=== PATIENT | male | born 1930 | race Caucasian/White ===

== ENCOUNTER 2016-08-02 15:20 | Inpatient (IN) | payer OTHER, MEDICARE ==
[~2016-08-02] VITALS: Ht 162.6 cm; Wt 77.6 kg
[~2016-08-02 15:20] MED LIST: LACTATED RINGER'S 1000 ML INJ 1,000 ML IV ONE; ONDANSETRON HCL 4 MG/2 ML VIAL IV PUSH ONE; PROPOFOL 200 MG/20 ML AMP IV ONE; ePHEDrine/NS 25 MG/5 ML SYR IV ONE
[2016-08-02 15:21] VITALS: BP 154/78; PULSE 54; RESP 15; TEMP 98.3; O2SAT 98
[2016-08-02] MEDS ORDERED: TAMS0.4C4 PO (15:38)
[2016-08-02] MEDS ORDERED: LOSA25TA PO (15:38)
[2016-08-02] MEDS ORDERED: METF500T PO (15:38)
[2016-08-02] MEDS ORDERED: SIMV10TA PO (15:38)
--- NOTE | 2016-08-02 15:55 | PD ---
HPI Chief Complaint: Medical Clearance Time Seen by Provider: 15:40 Travel History International Travel<30 days: No Contact w/Intl Traveler<30days: No Traveled to known affect area: No History of Present Illness HPI 86 year old male presents to the emergency department sent by urgent care for possible DVT/cellulitis to the left upper extremity. Patient states that he started to notice erythema and swelling to the left second finger approximately 2 weeks ago. He reports injury approximately 15 years ago where he injured the tip of the finger, but denies any recent injury. He apparently went to urgent care where he was referred to the emergency department. He states the erythema streaks up his left arm and he has swelling to the left arm. He denies any fevers. Patient reports history of hypertension, hyperlipidemia, diabetes. He states pain is minimal. He has reduced range of motion of the affected digit, but does report chronic reduced range of motion due to arthritis. PFSH Past Medical History Cardiovascular Problems: Yes Diabetes: Yes Diminished Hearing: Yes Tetanus Vaccination: Unknown Influenza Vaccination: No Social History Alcohol Use: No Tobacco Use: No Substance Use: No Allergies-Medications (Allergen,Severity, Reaction): Coded Allergies: Penicillin (Verified Allergy, Severe, Rash, 08/02/16) Reported Meds & Prescriptions Reported Meds & Active Scripts Active Reported Tamsulosin (Tamsulosin HCl) 0.4 Mg Cap 0.4 Mg PO HS Simvastatin 10 Mg Tab 10 Mg PO DAILY Metformin (Metformin HCl) 500 Mg Tab 500 Mg PO BIDPC With meals Losartan (Losartan Potassium) 25 Mg Tab 25 Mg PO DAILY Review of Systems Except as stated in HPI: all other systems reviewed are Neg Physical Exam Narrative GENERAL: Well-nourished, well-developed elderly male patient, ambulatory. Afebrile. SKIN: Focused skin assessment warm/dry. Left second finger is erythematous and swollen throughout the finger. There is lymphangiitis that streaks up the left arm. Patient also has edema noted to the left upper extremity. HEAD: Normocephalic. Atraumatic. EYES: No scleral icterus. No injection or drainage. NECK: Supple, trachea midline. No JVD or lymphadenopathy. CARDIOVASCULAR: Regular rate and rhythm without murmurs, gallops, or rubs. Left radial pulse 2+. RESPIRATORY: Breath sounds equal bilaterally. No accessory muscle use. GASTROINTESTINAL: Abdomen soft, non-tender, nondistended. MUSCULOSKELETAL: No cyanosis. Patient has limited ROM of all joints of the left second finger. BACK: Nontender without obvious deformity. No CVA tenderness. Data Data Last Documented VS Vital Signs Date Time Temp Pulse Resp B/P Pulse Ox O2 Delivery O2 Flow Rate FiO2 08/02/16 15:21 98.3 54 15 154/78 98 Orders Iv Access Insert/Monitor (08/02/16 15:37) Complete Blood Count With Diff (08/02/16 15:37) Basic Metabolic Panel (Bmp) (08/02/16 15:37) Hand, Complete ([id number]) (08/02/16 ) Us Arm Venous Doppler (08/02/16 ) Blood Culture (08/02/16 15:37) C-Reactive Protein (Crp) (08/02/16 15:37) Westergren Sedimentation Rate (08/02/16 15:37) Lactic Acid Sepsis Protocol (08/02/16 15:37) Vancomycin Inj (Vancomycin Inj) (08/02/16 17:00) Admit To Inpatient (08/02/16 ) Vital Signs (Adult) Q4H (08/02/16 17:18) Activity Oob With Assistance (08/02/16 17:18) Intake + Output COLLEEN.QSHIFT (08/02/16 17:18) Sodium Chlor 0.9% 1000 Ml Inj (Ns 1000 M (08/02/16 17:18) Sodium Chloride 0.9% Flush (Ns Flush) (08/02/16 17:30) Sodium Chloride 0.9% Flush (Ns Flush) (08/02/16 21:00) Acetaminophen (Tylenol) (08/02/16 17:30) Ondansetron Inj (Zofran Inj) (08/02/16 17:30) Comprehensive Metabolic Panel (08/03/16 06:00) Complete Blood Count With Diff (08/03/16 06:00) Heparin Inj (Heparin Inj) (08/02/16 18:00) Scd Bilateral/Knee High COLLEEN.BID (08/02/16 17:18) Inpatient Certification (08/02/16 ) Piperacil-Tazo 4.5 Gm Premix (Zosyn 4.5 (08/02/16 17:30) Vancomycin Consult Pharmacy (Vancomycin (08/02/16 17:30) Levofloxacin 750 Mg Premix Inj (Levaquin (08/02/16 18:00) Admit Order (Ed Use Only) (08/02/16 17:21) Labs Laboratory Tests Test 08/02/16 08/02/16 15:35 15:45 White Blood Count 9.0 TH/MM3 Red Blood Count 4.25 MIL/MM3 Hemoglobin 12.7 GM/DL Hematocrit 38.8 % Mean Corpuscular Volume 91.3 FL Mean Corpuscular Hemoglobin 29.9 PG Mean Corpuscular Hemoglobin 32.7 % Concent Red Cell Distribution Width 13.8 % Platelet Count 229 TH/MM3 Mean Platelet Volume 7.3 FL Neutrophils (%) (Auto) 62.9 % Lymphocytes (%) (Auto) 19.8 % Monocytes (%) (Auto) 15.0 % Eosinophils (%) (Auto) 1.9 % Basophils (%) (Auto) 0.4 % Neutrophils # (Auto) 5.7 TH/MM3 Lymphocytes # (Auto) 1.8 TH/MM3 Monocytes # (Auto) 1.4 TH/MM3 Eosinophils # (Auto) 0.2 TH/MM3 Basophils # (Auto) 0.0 TH/MM3 CBC Comment DIFF FINAL Differential Comment Erythrocyte Sedimentation Rate 56 mm/hr Sodium Level 136 MEQ/L Potassium Level 4.4 MEQ/L Chloride Level 101 MEQ/L Carbon Dioxide Level 27.5 MEQ/L Anion Gap 8 MEQ/L Blood Urea Nitrogen 23 MG/DL Creatinine 1.24 MG/DL Estimat Glomerular Filtration 55 ML/MIN Rate Random Glucose 104 MG/DL Calcium Level 8.9 MG/DL C-Reactive Protein 7.04 MG/DL Lactic Acid Level 1.3 mmol/L [facility] Medical Decision Making Medical Screen Exam Complete: Yes Emergency Medical Condition: Yes Medical Record Reviewed: Yes Interpretation(s) xr left hand - CONCLUSION: 1. 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 2. Soft tissue swelling over the second digit with osteoarthritic change as well. 3. The patient's fingers are flexed. Venous doppler US of the left upper extremity - CONCLUSION: Negative exam with no evidence of thrombosis. Differential Diagnosis cellulitis vs. osteomyelitis vs. DVT vs. sepsis Narrative Course 86 year old elderly male presents to the emergency department for evaluation of left second finger swelling, erythema, left arm edema that started 2 weeks ago. Physical exam reveals swelling and erythema of the left second finger was reduced range of motion as well as red streaking up the left arm and edema of the left arm. IV access established. CBC, BMP, CRP, sedimentation rate, blood cultures 2, lactic acid are ordered and pending. X-ray left hand is ordered and pending. Venous Doppler ultrasound of the left upper extremity is ordered and pending. CBC shows normal WBC of 9.0. BMP shows no acute abnormality. Sed rate is 56. CRP is 7.04. Lactic acid is 1.3. X-ray of the left hand shows osteoarthritic change greatest involving the third metacarpal phalangeal joint; soft tissue swelling over the second digit with osteoarthritic change as well; the patient' s fingers are flexed. Venous doppler US of left arm is negative for DVT. Hand surgeon on-call and [facility] is paged for admission. Dr. Camacho accepted admission. Dr. Newton, and surgeon, would like the patient to be nothing by mouth and she will come see the patient this evening. Diagnosis Primary Impression: Cellulitis of finger of left hand Admitting Information Admitting Physician Requests: Admit Lianna Perkins Aug 02, 2016 15:55
--- NOTE | 2016-08-02 16:20 | RADRPT ---
EXAM DATE/TIME: 08/02/2016 15:52 [facility] COMPARISON: No previous studies available for comparison. INDICATIONS : Left second finger swelling for several days. MEDICAL HISTORY : None. SURGICAL HISTORY : None. ENCOUNTER: Initial ACUITY: 3 days PAIN SCORE: 4/10 LOCATION: Left distal 2nd digit. FINDINGS: AP, lateral and oblique views of the left hand were obtained. The patient's fingers are flexed limiti ng the sensitivity. There is no acute fracture or malalignment. There are degenerative changes greate st involving the third metacarpal phalangeal joint with joint space loss, sclerosis and subchondral c yst formation. There is degenerative change involving the second distal interphalangeal joint as well with flexion. There is diffuse soft tissue swelling over the second digit no radiopaque foreign body . CONCLUSION: 1. 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 2. Soft tissue swelling over the second digit with osteoarthritic change as well. 3. The patient's fingers are flexed. Zaki Ramos MD on August 02, 2016 at 16:16 Board Certified Radiologist. This report was verified electronically.
[2016-08-02 16:26] LABS: AUTOMATED NEUTROPHIL # 5.7 TH/MM3 (1.8-7.7); BASOPHIL % 0.4 % (0.0-2.0); EOSINOPHIL # 0.2 TH/MM3 (0-0.4); EOSINOPHIL % 1.9 % (0.0-4.0); HEMATOCRIT 38.8 % (39.0-51.0); HEMO FLAGS DIFF FINAL; LYMPH % 19.8 % (9.0-44.0); LYMPHOCYTE # 1.8 TH/MM3 (1.0-4.8); MEAN CELL VOLUME 91.3 FL (80.0-100.0); MEAN CORPUSCULAR HEMOGLOBIN 29.9 PG (27.0-34.0); MEAN CORPUSCULAR HGB CONC 32.7 % (32.0-36.0); NEUT % 62.9 % (16.0-70.0); PLATELET COUNT 229 TH/MM3 (150-450); RED BLOOD COUNT 4.25 MIL/MM3 (4.50-5.90); RED CELL DISTRIBUTION WIDTH 13.8 % (11.6-17.2)
[2016-08-02 16:34] LABS: BICARBONATE 27.5 MEQ/L (21.0-32.0); POTASSIUM 4.4 MEQ/L (3.5-5.1)
--- NOTE | 2016-08-02 16:51 | RADRPT ---
EXAM DATE/TIME: 08/02/2016 15:47 [facility] COMPARISON: No previous studies available for comparison. INDICATIONS : Left arm pain. MEDICAL HISTORY : Hearing loss. Cardiac disorders. Diabetes. SURGICAL HISTORY : No known previous surgical history. ENCOUNTER: Initial ACUITY: 2 day PAIN SCORE: 3/10 LOCATION: Left arm. FINDINGS: There is spontaneous flow documented in the brachial, basilic, cephalic, axillary, and subclavian vei ns. The vessels are compressible and augmentation response is documented. No filling defects are se en. The flow is phasic with respiration. Direction of flow in the jugular vein is caudal. CONCLUSION: Negative exam with no evidence of thrombosis. Zaki Ramos MD on August 02, 2016 at 16:48 Board Certified Radiologist. This report was verified electronically.
[2016-08-02] MEDS ORDERED: VANCOMYCIN INJ 1,000 MG in SODIUM CHLOR 0.9% 250 ML INJ 250 ML IV ONE (17:00)
--- NOTE | 2016-08-02 17:13 | PD ---
Data Data Last Documented VS Vital Signs Date Time Temp Pulse Resp B/P Pulse Ox O2 Delivery O2 Flow Rate FiO2 08/02/16 15:21 98.3 54 15 154/78 98 Orders Iv Access Insert/Monitor (08/02/16 15:37) Complete Blood Count With Diff (08/02/16 15:37) Basic Metabolic Panel (Bmp) (08/02/16 15:37) Hand, Complete ([id number]) (08/02/16 ) Us Arm Venous Doppler (08/02/16 ) Blood Culture (08/02/16 15:37) C-Reactive Protein (Crp) (08/02/16 15:37) Westergren Sedimentation Rate (08/02/16 15:37) Lactic Acid Sepsis Protocol (08/02/16 15:37) Vancomycin Inj (Vancomycin Inj) (08/02/16 17:00) Diet Diabetic (08/02/16 Dinner) Labs Laboratory Tests Test 08/02/16 08/02/16 15:35 15:45 White Blood Count 9.0 TH/MM3 Red Blood Count 4.25 MIL/MM3 Hemoglobin 12.7 GM/DL Hematocrit 38.8 % Mean Corpuscular Volume 91.3 FL Mean Corpuscular Hemoglobin 29.9 PG Mean Corpuscular Hemoglobin 32.7 % Concent Red Cell Distribution Width 13.8 % Platelet Count 229 TH/MM3 Mean Platelet Volume 7.3 FL Neutrophils (%) (Auto) 62.9 % Lymphocytes (%) (Auto) 19.8 % Monocytes (%) (Auto) 15.0 % Eosinophils (%) (Auto) 1.9 % Basophils (%) (Auto) 0.4 % Neutrophils # (Auto) 5.7 TH/MM3 Lymphocytes # (Auto) 1.8 TH/MM3 Monocytes # (Auto) 1.4 TH/MM3 Eosinophils # (Auto) 0.2 TH/MM3 Basophils # (Auto) 0.0 TH/MM3 CBC Comment DIFF FINAL Differential Comment Erythrocyte Sedimentation Rate 56 mm/hr Sodium Level 136 MEQ/L Potassium Level 4.4 MEQ/L Chloride Level 101 MEQ/L Carbon Dioxide Level 27.5 MEQ/L Anion Gap 8 MEQ/L Blood Urea Nitrogen 23 MG/DL Creatinine 1.24 MG/DL Estimat Glomerular Filtration 55 ML/MIN Rate Random Glucose 104 MG/DL Calcium Level 8.9 MG/DL C-Reactive Protein 7.04 MG/DL Lactic Acid Level 1.3 mmol/L [facility] Supervised Visit with JAYDEN: Yes Narrative Course The history, exam, and medical decision-making in the associated midlevel provider note were completed with my assistance. I reviewed and agree with the findings presented. I attest that I had a [id number] encounter with the patient on the same day, and personally performed and documented my assessment and findings in the medical record. *My assessment and Findings: This is an 86-year-old male who presents to the emergency department with redness and swelling of his left second finger extending up his arm with warmth in his upper arm. He has significant arthritis affecting the family member but the finger is held in a flexed position with diffuse swelling and redness on the flexor surface with lymphangitic streaking and warmth proximal to the elbow. Inflammatory markers are elevated. Patient will be admitted for IV antibiotics and hand surgery consultation for likely incision and drainage Cherelle Garcia MD Aug 02, 2016 17:13
[2016-08-02] MEDS ORDERED: DEXTROSE 50% IN WATER 50 ML VIAL(D50) IV PUSH PRN (17:30)
[2016-08-02] MEDS ORDERED: Vancomycin Consult Pharmacy 1 EA OTHER SCH (17:30)
[2016-08-02] MEDS ORDERED: GLUCAGON 1 MG/ML VIAL OTHER PRN (17:30)
[2016-08-02] MEDS ORDERED: PIPERACIL-TAZO 4.5 GM PREMIX 100 ML IV SCH (17:30)
[2016-08-02] MEDS ORDERED: ONDANSETRON HCL 4 MG/2 ML VIAL IVP PRN (17:30)
[2016-08-02] MEDS ORDERED: SODIUM CHLORIDE 0.9% FLUSH 10 ML FLUSH IV FLUSH PRN (17:30)
[2016-08-02] MEDS ORDERED: ACETAMINOPHEN 325 MG TAB PO PRN (17:30)
[2016-08-02] MEDS ORDERED: LEVOFLOXACIN 750 MG PREMIX INJ 150 ML IV SCH (18:00)
[2016-08-02] MEDS ORDERED: MORPHINE SULFATE 4 MG/ML INJ IV PUSH PRN (18:00)
[2016-08-02] MEDS ORDERED: HEPARIN SODIUM - SQ 10,000 UNITS/ML VIAL SQ SCH (18:00)
--- NOTE | 2016-08-02 18:03 | HHI.HP ---
HPI Service [facility] Primary Care Physician Brent Walker, Admission Diagnosis cellulitis of left 2nd finger/left arm Diagnoses: Travel History International Travel<30 Days: No Contact w/Intl Traveler <30 Da: No Traveled to Known Affected Are: No History of Present Illness 86-year-old male with a past medical history of HTN, HLD, DM, and BPH who presents with left index finger swelling. The patient states that for the past 2 or 3 weeks she's been having swelling of his left index finger. He denies any acute injury. He has a dull ache in the finger, denies any pain. He has some swelling and redness of his left arm now. He was seen at urgent care and referred to the ED for evaluation. He denies any fevers or chills. Hand surgeries contacted from the ED and recommended to the patient nothing by mouth for evaluation and possible I&D in the OR tonight. The patient denies any nausea, abdominal pain, diarrhea, cough. Review of Systems Except as stated in HPI: all other systems reviewed are Neg Past Family Social History Past Medical History Hypertension Hyperlipidemia Diabetes mellitus BPH Past Surgical History Left hip replacement Reported Medications Tamsulosin (Tamsulosin HCl) 0.4 Mg Cap 0.4 Mg PO HS Simvastatin 10 Mg Tab 10 Mg PO DAILY Metformin (Metformin HCl) 500 Mg Tab 500 Mg PO BIDPC With meals Losartan (Losartan Potassium) 25 Mg Tab 25 Mg PO DAILY Allergies: Coded Allergies: Penicillin (Verified Allergy, Severe, Rash, 08/02/16) Active Ordered Medications Current Medications Medications (Trade) Dose Ordered Sig/Merary Route Start Time Stop Time Status Last Admin Vancomycin HCl 1000 mg/Sodium Chloride 250 ml @ 250 mls/hr ONCE ONCE IV 08/02/16 17:00 08/02/16 17:59 08/02/16 17:14 (NS 1000 ml Inj) 1,000 ml @ 100 mls/hr Q10H IV 08/02/16 17:18 (NS Flush) 2 ml UNSCH PRN IV FLUSH 08/02/16 17:30 (NS Flush) 2 ml BID IV FLUSH 08/02/16 21:00 (Tylenol) 650 mg Q4H PRN PO 08/02/16 17:30 (Zofran Inj) 4 mg Q6H PRN IVP 08/02/16 17:30 Heparin Sodium (Porcine) 5000 units 5,000 units Q8H SQ 08/02/16 18:00 Pharmacy Profile Note 0 ml @ 0 mls/hr UNSCH OTHER 08/02/16 17:30 (Levaquin 750 Mg Premix Inj) 150 ml @ 100 mls/hr Q24H IV 08/02/16 18:00 (D50w (Vial) Inj) 25 ml UNSCH PRN IV PUSH 08/02/16 17:30 Glucagon 1 mg 1 mg UNSCH PRN OTHER 08/02/16 17:30 (Vancomycin Inj/ NS 250 ml Inj) 262.5 ml @ 250 mls/hr Q24H IV 08/03/16 16:00 Miscellaneous Information SPECIFIC LAB TO BE DRAWN:VANCO TROUGH DATE TO... ONCE ONCE .XX 08/05/16 15:45 08/05/16 15:46 Family History Mother at age 98 and father in his 80s, denies any medical problems with them. Brother had prostate cancer. Social History Denies any alcohol, tobacco, or drug use Physical Exam Vital Signs Vital Signs Date Time Temp Pulse Resp B/P Pulse Ox O2 Delivery O2 Flow Rate FiO2 08/02/16 15:21 98.3 54 15 154/78 98 Physical Exam GENERAL: Well-developed well-nourished. In no acute distress. SKIN: Warm and dry. Left index finger with severe swelling, erythema, with edema and lymphangitic streaking of the left forearm. HEENT: Normocephalic. Pupils equal and round. Mucous membranes pink and moist. CARDIOVASCULAR: Regular rate and rhythm. No murmur appreciated. RESPIRATORY: No accessory muscle use. Clear to auscultation. Breath sounds equal bilaterally. GASTROINTESTINAL: Abdomen soft, non-tender, nondistended. Bowel sounds x4. MUSCULOSKELETAL: Left upper extremity as above. No clubbing or cyanosis. No edema. NEUROLOGICAL: Awake and alert. No focal neurological deficits. Moves upper and lower extremities spontaneously. Normal speech. PSYCHIATRIC: Appropriate mood and affect; insight and judgment normal. Laboratory Laboratory Tests Test 08/02/16 08/02/16 15:35 15:45 White Blood Count 9.0 Red Blood Count 4.25 Hemoglobin 12.7 Hematocrit 38.8 Mean Corpuscular Volume 91.3 Mean Corpuscular Hemoglobin 29.9 Mean Corpuscular Hemoglobin 32.7 Concent Red Cell Distribution Width 13.8 Platelet Count 229 Mean Platelet Volume 7.3 Neutrophils (%) (Auto) 62.9 Lymphocytes (%) (Auto) 19.8 Monocytes (%) (Auto) 15.0 Eosinophils (%) (Auto) 1.9 Basophils (%) (Auto) 0.4 Neutrophils # (Auto) 5.7 Lymphocytes # (Auto) 1.8 Monocytes # (Auto) 1.4 Eosinophils # (Auto) 0.2 Basophils # (Auto) 0.0 CBC Comment DIFF FINAL Differential Comment Erythrocyte Sedimentation Rate 56 Sodium Level 136 Potassium Level 4.4 Chloride Level 101 Carbon Dioxide Level 27.5 Anion Gap 8 Blood Urea Nitrogen 23 Creatinine 1.24 Estimat Glomerular Filtration 55 Rate Random Glucose 104 Calcium Level 8.9 C-Reactive Protein 7.04 Lactic Acid Level 1.3 Date/Time Procedure Status Source Growth 08/02/16 15:50 Aerobic Blood Culture Received Blood Peripheral Pending 08/02/16 15:50 Anaerobic Blood Culture Received Blood Peripheral Pending Result Diagram: 08/02/16 1535 08/02/16 1535 Imaging Last Impressions Upper Extremity Ultrasound 08/02/16 0000 Signed Impressions: Service Date/Time: Tuesday, August 02, 2016 15:47 - CONCLUSION: Negative exam with no evidence of thrombosis. Zaki Ramos MD Hand X-Ray 08/02/16 0000 Signed Impressions: Service Date/Time: Tuesday, August 02, 2016 15:52 - CONCLUSION: 1. 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 2. Soft tissue swelling over the second digit with osteoarthritic change as well. 3. The patient's fingers are flexed. Zaki Ramos MD Assessment and Plan Assessment and Plan 86-year-old male with a past medical history of HTN, HLD, DM, and BPH who presents with left index finger swelling Left index finger cellulitis with suspected underlying abscess: Afebrile with no leukocytosis. Elevated ESR and CRP. Hand X-ray with soft tissue swelling and also for any changes. Impression renal ultrasound negative for DVT. Hand surgery consulted, keep nothing by mouth for now. IV antibiotics with vancomycin and Levaquin with penicillin allergy. Pain control with [place] and IV morphine as needed. Diabetes mellitus: Hold home metformin for now. Monitor Accu-Cheks. Cover with SSI. ALEXANDRE vs CKD: Creatinine 1.24, no previous labs for comparison. IVF. Follow-up BMP in the a.m. Other chronic medical conditions include HTN, HLD, BPH: Stable at this time and will continue home medications as indicated. DVT prophylaxis: SCDs. Hold chemical prophylaxis with possible upcoming procedure. Written by Lam Pringle, acting as scribe for Dr. Camacho on 08/02/16 at 18:03. Discussed Condition With Patient, ED CLASSIFICATION ANALYST Attending Statement This note was transcribed by scribe Lam Pringle. I, Dr. Marlon Fang personally performed the history, physical exam, and medical decision making; and confirmed the accuracy of the information in the transcribed note. Authenticated by Dr. Marlon Fang on 08/03/16 at 09:18. Lam Pringle Aug 02, 2016 18:03 Marlon Enrique MD Aug 03, 2016 09:19
[2016-08-02] MEDS: SODIUM CHLOR 0.9% 1000 ML INJ 1,000 ML IV SCH ×2 (18:07→22:30)
[2016-08-02] MEDS ORDERED: GADODIAMIDE PF 287 MG/ML 5 ML VIAL (for RAD MRI) IV ONE (20:06)
--- NOTE | 2016-08-02 20:34 | RADRPT ---
EXAM DATE/TIME: 08/02/2016 19:42 [facility] COMPARISON: No previous studies available for comparison. INDICATIONS : Osteomyelitis. Left index finger redness and swelling. CONTRAST: 15 cc Omniscan (gadodiamide) IV MEDICAL HISTORY : Diabetes mellitus type 2. SURGICAL HISTORY : Total knee replacement, left. ENCOUNTER: Subsequent ACUITY: 3 day PAIN SCORE: 0/10 LOCATION: Left hand. TECHNIQUE: Multiplanar, multisequence MRI examination was performed without contrast and after the intravenous a dministration of gadolinium. FINDINGS: There is soft tissue edema of the left pointer finger, especially distally. Dorsal-most soft tissues are ulcerated. There is a 7 mm rim-enhancing fluid collection distally as well, slightly palmar in lo cation and appears to be draining to the skin. The fluid collection extends down to the distal tip of the distal phalanx which is focally eroded. There is decreased T1 signal throughout the distal phala nx compatible with diffuse osteomyelitis. There is no evidence of osteomyelitis of the proximal or middle phalanges of the pointer finger. No o steomyelitis of the other digits. CONCLUSION: 1. Diffuse soft tissue swelling of the pointer finger. There is ulceration and a 7 mm abscess distall y. 2. There is signal abnormality compatible with osteomyelitis throughout the pointer finger distal pha lanx. There is focal cortical destruction of the distal tip of the bone. Gerardo Amaro MD on August 02, 2016 at 20:28 Board Certified Radiologist. This report was verified electronically.
[2016-08-02] MEDS ORDERED: LIDOCAINE HCL 2% 50 ML VIAL ONE (21:04)
[2016-08-02] MEDS ORDERED: ceFAZolin INJ 1,000 MG VIAL IV ONE (21:05)
[2016-08-02] MEDS ORDERED: NEOMYCIN/POLYMYXIN 1 ML G.U. IRRIGANT TOPICAL ONE (21:06)
[2016-08-02] MEDS ORDERED: fentaNYL CITRATE 250 MCG/5 ML AMP ONE (22:07)
[2016-08-02] MEDS: SODIUM CHLORIDE 0.9% FLUSH 10 ML FLUSH IV FLUSH SCH (22:30)
[2016-08-02] MEDS: INSULIN ASPART SUPPLEMENTAL SCALE SQ SCH (22:30)
[2016-08-02] MEDS: TAMSULOSIN HCL 0.4 MG CAP PO SCH (23:06)
[2016-08-02 23:09] VITALS: BP 131/71; PULSE 95; RESP 16; TEMP 96.6; O2SAT 93
--- NOTE | 2016-08-02 23:37 | PD.ORT.PN ---
Subjective Subjective Remarks 86yM L index finger swelling with lymphangitis left elbow likely osteomyelitis left index finger, PMHx significant for DM Objective Vitals Vital Signs Date Time Temp Pulse Resp B/P Pulse Ox O2 Delivery O2 Flow Rate FiO2 08/02/16 23:09 96.6 95 16 131/71 93 08/02/16 22:32 98.3 18 147/79 94 Nasal Cannula 3 08/02/16 22:15 21 132/68 98 Nasal Cannula 3 08/02/16 22:00 98.4 101 18 133/71 98 Nasal Cannula 3 08/02/16 15:21 98.3 54 15 154/78 98 I/O 08/01/16 08/01/16 08/01/16 08/02/16 08/02/16 08/02/16 07:00 15:00 23:00 07:00 15:00 23:00 Intake Total 1100 ml Output Total 110 ml Balance 990 ml Intake Oral 0 ml Other 1100 ml Output Urine Total 100 ml Estimated Blood Loss 10 ml Result Diagram: 08/02/16 1535 08/02/16 1535 Imaging Last 24 hours Impressions Upper Extremity Ultrasound 08/02/16 0000 Signed Impressions: Service Date/Time: Tuesday, August 02, 2016 15:47 - CONCLUSION: Negative exam with no evidence of thrombosis. Zaki Ramos MD Hand X-Ray 08/02/16 0000 Signed Impressions: Service Date/Time: Tuesday, August 02, 2016 15:52 - CONCLUSION: 1. 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 2. Soft tissue swelling over the second digit with osteoarthritic change as well. 3. The patient's fingers are flexed. Zaki Ramos MD Hand MRI 08/02/16 0000 Signed Impressions: Service Date/Time: Tuesday, August 02, 2016 19:42 - CONCLUSION: 1. Diffuse soft tissue swelling of the pointer finger. There is ulceration and a 7 mm abscess distally. 2. There is signal abnormality compatible with osteomyelitis throughout the pointer finger distal phalanx. There is focal cortical destruction of the distal tip of the bone. Gerardo Amaro MD Objective Remarks Dressing in place, Good capillary refill to flap, able to wiggle finger Assessment & Plan Assessment and Plan POD0 s/p I&D left index finger, revision amputation left index finger -Admit for IV Ab, infectious disease consulted -Glucose control -Dressing change POD2, will continue to follow Dianne Newton MD Aug 02, 2016 23:37
[2016-08-02 23:52] VITALS: O2SAT 93
[2016-08-03] MEDS ORDERED: VANCOMYCIN INJ 1,000 MG in SODIUM CHLOR 0.9% 250 ML INJ 250 ML IV SCH (05:00)
[2016-08-03 05:17] VITALS: BP 144/85; PULSE 110; RESP 16; TEMP 95.9; O2SAT 96
[2016-08-03] MEDS: INSULIN ASPART SUPPLEMENTAL SCALE SQ SCH ×4 (05:34→21:00)
[2016-08-03 06:59] LABS: AUTOMATED NEUTROPHIL # 6.6 TH/MM3 (1.8-7.7); BASOPHIL % 0.1 % (0.0-2.0); EOSINOPHIL % 0.1 % (0.0-4.0); HEMATOCRIT 39.4 % (39.0-51.0); LYMPH % 7.2 % (9.0-44.0); LYMPHOCYTE # 0.5 TH/MM3 (1.0-4.8); MEAN CELL VOLUME 91.5 FL (80.0-100.0); MEAN CORPUSCULAR HEMOGLOBIN 29.9 PG (27.0-34.0); MEAN CORPUSCULAR HGB CONC 32.7 % (32.0-36.0); MONO % 5.3 % (0.0-8.0); NEUT % 87.3 % (16.0-70.0); PLATELET COUNT 216 TH/MM3 (150-450); RED CELL DISTRIBUTION WIDTH 13.5 % (11.6-17.2); WHITE BLOOD COUNT 7.6 TH/MM3 (4.0-11.0)
[2016-08-03 07:05] LABS: HEMO FLAGS DIFF FINAL
[2016-08-03 07:20] LABS: ALT (GPT) 19 U/L (12-78); ANION GAP 9 MEQ/L (5-15); AST (GOT) 19 U/L (15-37); BICARBONATE 25.7 MEQ/L (21.0-32.0); BLOOD UREA NITROGEN 20 MG/DL (7-18); CHLORIDE 103 MEQ/L (98-107); GLOMERULAR FILTRATION RATE 59 ML/MIN (>89); POTASSIUM 4.4 MEQ/L (3.5-5.1); SODIUM (NA) 138 MEQ/L (136-145)
[2016-08-03 07:22] LABS: ALKALINE PHOSPHATASE 52 U/L (45-117); TOTAL BILIRUBIN ADULT 0.6 MG/DL (0.2-1.0)
[2016-08-03 07:50] VITALS: BP 129/71; PULSE 91; RESP 20; TEMP 96.6; O2SAT 95
[2016-08-03] MEDS: LOSARTAN 25 MG TAB PO SCH (08:17)
[2016-08-03] MEDS: PRAVASTATIN SOD 20 MG TAB PO SCH (08:17)
[2016-08-03] MEDS: SODIUM CHLORIDE 0.9% FLUSH 10 ML FLUSH IV FLUSH SCH ×2 (08:18→21:08)
[2016-08-03] MEDS: ACETAMINOPHEN/HYDROcodone 325 MG/5 MG TAB PO PRN (08:22)
--- NOTE | 2016-08-03 09:53 | MB ---
cc: ESTEFANI GUARDADO DATE OF CONSULTATION: 08/02/2016 REASON FOR CONSULTATION Pain and swelling left index finger, left upper extremity. HISTORY OF PRESENT ILLNESS Rocco Coreas is a pleasant 86-year-old right-hand dominant male who states he has longstanding pain with bilateral hands with significant flexion deformity of bilateral hands. He states that he had a table saw injury to his left index finger 10 years ago and since that time has had on and off pain, swelling and drainage over the finger. He states that it was never as bad as until [id number] weeks ago when he noted swelling and erythema over the finger. He presented to the emergency room today and he states that just today he noted purulent drainage from the tip of the left index finger. He is right hand dominant. He walks with a cane. he has had a left total hip arthroplasty and denies any pain over the hip. He denies any acute paresthesias, although he does report paresthesias in the hands bilaterally. He does have a history of diabetes but does not know his A1c. He denies any fevers, chills or nausea. Today he presented with swelling and erythema over the left elbow. PAST MEDICAL HISTORY Hypertension and diabetes. PAST SURGICAL HISTORY Left total hip arthroplasty. MEDICATION 1. Tamsulosin. 2. Simvastatin. 3. Metformin. 4. Losartan. ALLERGIES PENICILLIN. SOCIAL HISTORY Denies tobacco, alcohol or drug use. PHYSICAL EXAMINATION VITAL SIGNS: The patient is afebrile. Vital signs are stable. Exam of the left index finger shows purulent drainage from the tip of the left index finger. There is nail deformity. There is significant swelling of the left index finger throughout the course with erythema extending to the MP joint. The patient also has significant swelling over the elbow with lymphangitis. Minimal pain with range of motion of the elbow. Sensation present but decreased in the median, ulnar and radial distribution, 2+ radial pulse. The patient holds his fingers baseline bilaterally with flexion deformity of the PIP joints. LABORATORY DATA White count 9, ESR 56, CRP 7.04, glucose 104. IMAGING STUDIES X-rays of the left hand were reviewed which showed diffuse arthritis throughout the finger, worse at the third MCP joint with soft tissue swelling over the index finger. ASSESSMENT/PLAN 86-year-old right hand dominant male with several week history at least of pain, swelling and erythema over the index finger. This time he likely has osteomyelitis. At this time I recommend a stat MRI before likely surgical intervention including incision and drainage of the abscess, possible revision amputation and the patient elected to proceed. Risks were explained to include but not limited to sepsis, wound complications, infection, need for additional surgeries, need for additional amputation of the finger, nail deformity, and the patient elected to proceed. After the initial discussion with the patient, MRI was ordered of the left hand which showed osteomyelitis of the left index finger distal phalanx. This has an associated abscess. No evidence of osteomyelitis of the middle or proximal phalanx. Again, this was reviewed with the patient and again he elected to proceed with possible revision amputation to the DIP joint. MD TROY Abdullahi/TLL /11:44 PM /9:29 AM CARMINE
[2016-08-03 11:46] VITALS: O2SAT 94
[2016-08-03 11:50] VITALS: BP 120/68; PULSE 90; RESP 20; TEMP 97.1; O2SAT 95
--- NOTE | 2016-08-03 13:31 | HHI.PR ---
Subjective Remarks Patient denies cp/sob states wants to go home denies fevers/chills denies nausea/vomiting Objective Vitals Vital Signs Date Time Temp Pulse Resp B/P Pulse Ox O2 Delivery O2 Flow Rate FiO2 08/03/16 11:46 94 21 08/03/16 07:50 96.6 91 20 129/71 95 08/03/16 07:50 96.6 91 20 129/71 95 08/03/16 05:17 95.9 110 16 144/85 96 08/02/16 23:52 93 21 08/02/16 23:09 96.6 95 16 131/71 93 08/02/16 22:32 98.3 18 147/79 94 Nasal Cannula 3 08/02/16 22:15 21 132/68 98 Nasal Cannula 3 08/02/16 22:00 98.4 101 18 133/71 98 Nasal Cannula 3 08/02/16 15:21 98.3 54 15 154/78 98 I/O 08/02/16 08/02/16 08/02/16 08/03/16 08/03/16 08/03/16 07:00 15:00 23:00 07:00 15:00 23:00 Intake Total 1100 ml 200 ml Output Total 110 ml 800 ml Balance 990 ml -600 ml Intake Oral 0 ml 200 ml Other 1100 ml Output Urine Total 100 ml 800 ml Estimated Blood Loss 10 ml # Bowel Movements 6 Result Diagram: 08/03/16 0545 08/03/16 0545 Imaging Last Impressions Upper Extremity Ultrasound 08/02/16 0000 Signed Impressions: Service Date/Time: Tuesday, August 02, 2016 15:47 - CONCLUSION: Negative exam with no evidence of thrombosis. Zaki Ramos MD Hand X-Ray 08/02/16 0000 Signed Impressions: Service Date/Time: Tuesday, August 02, 2016 15:52 - CONCLUSION: 1. 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 2. Soft tissue swelling over the second digit with osteoarthritic change as well. 3. The patient's fingers are flexed. Zaki Ramos MD Hand MRI 08/02/16 0000 Signed Impressions: Service Date/Time: Tuesday, August 02, 2016 19:42 - CONCLUSION: 1. Diffuse soft tissue swelling of the pointer finger. There is ulceration and a 7 mm abscess distally. 2. There is signal abnormality compatible with osteomyelitis throughout the pointer finger distal phalanx. There is focal cortical destruction of the distal tip of the bone. Gerardo Amaro MD Objective Remarks GENERAL: Well-developed well-nourished. In no acute distress. SKIN: Warm and dry. HEENT: Normocephalic. Pupils equal and round. Mucous membranes pink and moist. CARDIOVASCULAR: Regular rate and rhythm. No murmur appreciated. RESPIRATORY: No accessory muscle use. Clear to auscultation. Breath sounds equal bilaterally. GASTROINTESTINAL: Abdomen soft, non-tender, nondistended. Bowel sounds x4. MUSCULOSKELETAL: No clubbing or cyanosis. No edema. Left upper extremity is dressed with dressing C/D/I. Distal phalanx is absent. NEUROLOGICAL: Awake and alert. No focal neurological deficits. Moves upper and lower extremities spontaneously. Normal speech. PSYCHIATRIC: Appropriate mood and affect; insight and judgment normal. Procedures Status post incision and drainage of left index finger with revision amputation of left index finger DIP on 08/03/16. Medications and IVs Current Medications Medications (Trade) Dose Ordered Sig/Merary Route Start Time Stop Time Status Last Admin (NS 1000 ml Inj) 1,000 ml @ 100 mls/hr Q10H IV 08/02/16 17:18 08/02/16 22:30 (NS Flush) 2 ml UNSCH PRN IV FLUSH 08/02/16 17:30 (NS Flush) 2 ml BID IV FLUSH 08/02/16 21:00 08/02/16 22:30 (Tylenol) 650 mg Q4H PRN PO 08/02/16 17:30 Ondansetron HCl 4 mg 4 mg Q6H PRN IVP 08/02/16 17:30 (Vancomycin Consult Pharmacy) 0 ml @ 0 mls/hr UNSCH OTHER 08/02/16 17:30 (D50w (Vial) Inj) 25 ml UNSCH PRN IV PUSH 08/02/16 17:30 Glucagon 1 mg 1 mg UNSCH PRN OTHER 08/02/16 17:30 (Vancomycin Inj/ NS 250 ml Inj) 262.5 ml @ 250 mls/hr Q24H IV 08/03/16 16:00 Miscellaneous Information SPECIFIC LAB TO BE DRAWN:VANCO TROUGH DATE TO... ONCE ONCE .XX 08/05/16 15:45 08/05/16 15:46 ([facility] 5-325 Mg) 1 tab Q6H PRN PO 08/02/16 18:00 08/03/16 08:22 (Morphine Inj) 2 mg Q3H PRN IV PUSH 08/02/16 18:00 (Cozaar) 25 mg DAILY PO 08/03/16 09:00 08/03/16 08:17 (Flomax) 0.4 mg HS PO 08/02/16 21:00 08/02/16 23:06 (Pravachol) 20 mg DAILY PO 08/03/16 09:00 08/03/16 08:17 Urinary Catheter: No Vascular Central Line Catheter: No A/P Problem List: (1) Osteomyelitis of finger of left hand ICD Code: M86.9 Status: Acute Plan: Hand x-ray with soft tissue swelling. Doppler ultrasound negative for DVT. Hand surgery consulted, appreciate recommendations. MRI stat was ordered by hand surgery, it showed osteomyelitis of the distal phalanx of the left index finger. Given the above findings, amputation of the left index finger was proposed to the patient which accepted. Patient was initially admitted to the medical floor on IV antibiotics - IV vancomycin and IV Levaquin. Patient is status post incision and drainage off abscess of the left index finger and revision with amputation of the distal phalanx. Continue pain control with [facility] and morphine sulfate. (2) Cellulitis of left index finger ICD Code: L03.012 Status: Acute Plan: Continue IV antibiotics. Patient on IV vancomycin IV Levaquin. (3) Abscess of left index finger ICD Code: L02.512 Status: Acute Plan: Status post incision and drainage of the left index finger abscess. Follow-up wound cultures. Wound Gram stain grew gram-positive declan. ID to follow. (4) Diabetes ICD Code: E11.9 Status: Chronic Plan: Metformin helped on admission. Continue SSI with insulin NovoLog and continue to monitor Accu-Cheks. Blood sugar seems to be stable. Hemoglobin A1c pending. (5) ALEXANDRE (acute kidney injury) ICD Code: N17.9 Status: Acute Plan: Creatinine elevated 1.24, however no previous labs for comparison. The patient placed on IV fluids. Creatinine trending down to 1.1. Continue to monitor BUN/creatinine, strict I' s and O's. Possible postobstructive AKA given urinary retention which was addressed today. (6) HTN (hypertension) ICD Code: I10 Status: Chronic Plan: BP seems to be stable. Continue losartan. (7) HLD (hyperlipidemia) ICD Code: E78.5 Status: Chronic Plan: Continue statin (8) Urinary retention ICD Code: R33.9 Status: Acute Plan: This a.m. patient with lower abdominal pain. Moya catheter inserted. We'll keep for today and start voiding trials in a.m. Will give an extra dose of Flomax 0.4 mg. (9) BPH (benign prostatic hyperplasia) ICD Code: N40.0 Status: Chronic Plan: Continue Flomax. Assessment and Plan GI prophylaxis: Add PPI. DVT prophylaxis: SCDs, will place on heparin subcutaneous . Discharge Planning Continue to monitor in the medical floor. Discharge pending and surgery clearance. Problem Qualifiers (1) Diabetes: Qualified Code: E11.8 - Type 2 diabetes mellitus with complication, without long-term current use of insulin (2) HTN (hypertension): Qualified Code: I10 - Essential hypertension Marlon Enrique MD Aug 03, 2016 13:31
--- NOTE | 2016-08-03 15:19 | MB ---
cc: JUAN DUNCAN MD,DIANNE Hartman MD DATE OF CONSULTATION: 08/03/2016 REQUESTING PHYSICIAN: Dianne Newton. REASON FOR CONSULTATION: Left index finger infection with significant lymphangitis at the left elbow. HISTORY OF PRESENT ILLNESS: This is a 86-year-old white male who presented to emergency department with severe pain in his left index finger and swelling of the left index finger. The patient noted redness extending up from his index finger up to his elbow. He states that the problem began approximately three days ago when he thinks may have something got into his left index finger at an area where he has a chronic wound beneath the nail bed. He notes that approximately 24 hours prior to admission the pain became very severe and the swelling and redness went up his left arm and therefore he presented to emergency department for evaluation. The patient had a previous injury to the left index finger approximately 15 years ago when he injured the tip of the finger with a saw, and he had occasional drainage off and on coming from that location. An ultrasound of the left upper extremity showed no evidence of deep venous thrombosis. Plain x-ray showed osteoarthritic change involving the third metacarpal phalangeal joint and soft tissue swelling over the second digit. An MRI was performed and showed diffuse soft tissue swelling of the of the pointer finger and 7 mm abscess distally and signal abnormality compatible with osteomyelitis throughout the pointer finger distal phalanx and focal cortical destruction of the distal tip of the bone. The patient denies chills or fever or other symptoms. PAST MEDICAL HISTORY 1. Left hip replacement 2. Osteoarthritis 3. Benign prostatic hypertrophy. 4. Diabetes mellitus 5. Hypertension. ALLERGIES PENICILLIN MEDICATIONS 1. Vancomycin. 2. Levaquin. 3. Colazal. 4. Pravachol. 5. Flomax. 6. [place] 5 p.r.n. SOCIAL HISTORY The patient is . No tobacco use. No alcohol use. No illicit drugs. FAMILY HISTORY Noncontributory. REVIEW OF SYSTEMS GENERAL: Denies fever or chills. HEAD, EYES, EARS, NOSE, AND THROAT: No visual blurring or diplopia. The patient has impaired hearing and uses hearing aids. No nasal discharge. No difficulty swallowing or soreness of breath. NECK: No neck pain or swelling. CARDIOVASCULAR SYSTEM: No palpitation or chest pain. RESPIRATORY: No cough or shortness of breath. GASTROINTESTINAL: Denies nausea, vomiting, abdominal pain or diarrhea. GENITOURINARY: The patient has urinary hesitancy. No burning on urination or urinary frequency. ENDOCRINE: No polyuria, polydipsia. MUSCULOSKELETAL: Significant for pain and left index finger and left forearm. Chronic wound at the tip of the left index finger with occasional draining. INTEGUMENTARY: No skin rash. No itching. HEMATOLOGIC: No easy bruising or bleeding. NEUROLOGIC: No problems coordination or dizziness. PSYCHIATRIC: No problems with depression or mood changes in the PHYSICAL EXAMINATION IN GENERAL: This is a well-developed male who is in no acute distress. The patient is awake and alert and oriented. VITAL SIGNS: Vital signs: Temperature 96.6, BP 129/71, respirations 20, Heart rate 91. HEAD, EYES, EARS, NOSE, AND THROAT: Head atraumatic. Extraocular movements grossly intact, pupils reactive to light without icterus. Oropharynx no visible lesions or thrush. Moist mucosa. NECK: The neck is supple without adenopathy or swelling. LUNGS: The lungs are clear to auscultation. HEART: The heart is regular S1-S2 without murmurs, rubs or gallops. ABDOMEN: Bowel sounds present, soft, no tenderness appreciated. RECTUM: Rectal was not preformed. EXTREMITIES: The left index finger has a surgical dressing in place. There is no redness at the forearm. The left index finger is swollen. There are no streaks of redness visible at the forearm. The remaining extremities have no clubbing, cyanosis or edema. SKIN: No rash. NEUROLOGIC: No gross focal findings. PSYCHIATRIC: The patient is calm and pleasant and cooperative. LABORATORY DATA WBC 7.6, platelets 216, hemoglobin 12.9, ESR 56. BUN 20, creatinine 1.17, sodium 138. Liver function tests normal. IMPRESSION 1. Osteomyelitis of the left index finger and also abscess. The patient is post incision and drainage and partial amputation and also removal of the nail of the left index finger. 2. Cellulitis of the left forearm. 3. Lymphangitis 4. Allergy to penicillin. RECOMMENDATIONS 1. Continue vancomycin. 2. Discontinue Levaquin since the gram stain from the surgical specimen shows moderate gram-positive cocci in pairs. 3. Monitor wound culture to determine antibiotic for continuation of treatment for this infection. Thank you for this consultation. Further recommendations will be given upon followup of the cultures. MD Aileen Davey /11:24 AM /2:54 PM
[2016-08-03 15:50] VITALS: BP 135/71; PULSE 85; RESP 20; TEMP 97.3; O2SAT 95
[2016-08-03] MEDS ORDERED: VANCOMYCIN INJ 1,250 MG in SODIUM CHLOR 0.9% 250 ML INJ 250 ML IV SCH (16:00)
[2016-08-03 16:18] LABS: HEMOGLOBIN A1a 0.8 %; HEMOGLOBIN Ao 83.6 %; HEMOGLOBIN LA1C 2.8 %; HEMOGLOBIN P3 5.7 %
[2016-08-03 20:00] VITALS: BP 125/68; PULSE 86; RESP 19; TEMP 97.6; O2SAT 95
[2016-08-03] MEDS: TAMSULOSIN HCL 0.4 MG CAP PO SCH (21:08)
[2016-08-03] MEDS: SODIUM CHLOR 0.9% 1000 ML INJ 1,000 ML IV SCH (23:18)
[2016-08-04] VITALS: BP 125/68; PULSE 84; PULSE 86; RESP 18; TEMP 97.3; TEMP 97.6; O2SAT 95; O2SAT 96
[2016-08-04 04:00] VITALS: BP 132/68; PULSE 88; RESP 19; TEMP 97.4; O2SAT 96
[2016-08-04] MEDS: INSULIN ASPART SUPPLEMENTAL SCALE SQ SCH ×4 (07:00→20:05)
[2016-08-04 08:00] VITALS: BP 129/80; PULSE 113; RESP 18; TEMP 97.2; O2SAT 95
[2016-08-04] MEDS: PRAVASTATIN SOD 20 MG TAB PO SCH (09:55)
[2016-08-04] MEDS: LOSARTAN 25 MG TAB PO SCH (09:55)
[2016-08-04] MEDS: SODIUM CHLORIDE 0.9% FLUSH 10 ML FLUSH IV FLUSH SCH ×2 (09:56→20:03)
[2016-08-04] MEDS: SODIUM CHLOR 0.9% 1000 ML INJ 1,000 ML IV SCH (10:03)
[2016-08-04] MEDS: ACETAMINOPHEN/HYDROcodone 325 MG/5 MG TAB PO PRN (11:14)
[2016-08-04 12:00] VITALS: BP 109/65; PULSE 83; RESP 18; TEMP 97.2; O2SAT 95
--- NOTE | 2016-08-04 12:16 | HHI.IDPN ---
Note Infectious Disease Note Patient says he feels okay. Notes pain in his right leg. No pain at the left index finger wound. Had to have a veliz placement yesterday. 800cc residual. Patient presented to emergency department with severe pain in his left index finger and swelling of the left index finger. The patient noted redness extending up from his index finger up to his elbow. PAST MEDICAL HISTORY 1. Left hip replacement 2. Osteoarthritis 3. Benign prostatic hypertrophy. 4. Diabetes mellitus 5. Hypertension. ALLERGIES PENICILLIN MEDICATIONS 1. Vancomycin. 2. Levaquin. SOCIAL HISTORY The patient is . No tobacco use. No alcohol use. No illicit drugs. FAMILY HISTORY Noncontributory. REVIEW OF SYSTEMS GENERAL: Denies fever or chills. HEAD, EYES, EARS, NOSE, AND THROAT: No visual blurring or diplopia. The patient has impaired hearing and uses hearing aids. No nasal discharge. No difficulty swallowing or soreness of breath. NECK: No neck pain or swelling. CARDIOVASCULAR SYSTEM: No palpitation or chest pain. RESPIRATORY: No cough or shortness of breath. GASTROINTESTINAL: Denies nausea, vomiting, abdominal pain or diarrhea. GENITOURINARY: The patient has urinary hesitancy. No burning on urination or urinary frequency. ENDOCRINE: No polyuria, polydipsia. MUSCULOSKELETAL: Significant for pain and left index finger and left forearm. Chronic wound at the tip of the left index finger with occasional draining. INTEGUMENTARY: No skin rash. No itching. HEMATOLOGIC: No easy bruising or bleeding. NEUROLOGIC: No problems coordination or dizziness. PSYCHIATRIC: No problems with depression or mood changes. OBJECTIVE: Vital Signs Date Time Temp Pulse Resp B/P Pulse Ox O2 Delivery O2 Flow Rate FiO2 08/04/16 08:00 97.2 113 18 129/80 95 08/04/16 04:00 97.4 88 19 132/68 96 08/04/16 00:00 97.3 84 18 125/68 96 08/03/16 20:00 97.6 86 19 125/68 95 08/03/16 15:50 97.3 85 20 135/71 95 08/03/16 08/03/16 08/04/16 15:00 23:00 07:00 Intake Total 1492 ml 1157 ml 568 ml Output Total 1800 ml 1000 ml Balance -308 ml 157 ml 568 ml Intake Oral 480 ml 240 ml IV Total 1012 ml 917 ml 568 ml Output Urine Total 1800 ml 1000 ml # Bowel Movements 1 Laboratory Tests Test 08/02/16 08/03/16 15:35 05:45 White Blood Count 9.0 TH/MM3 7.6 TH/MM3 Red Blood Count 4.25 MIL/MM3 4.30 MIL/MM3 Hemoglobin 12.7 GM/DL 12.9 GM/DL Hematocrit 38.8 % 39.4 % Mean Corpuscular Volume 91.3 FL 91.5 FL Mean Corpuscular Hemoglobin 29.9 PG 29.9 PG Mean Corpuscular Hemoglobin 32.7 % 32.7 % Concent Red Cell Distribution Width 13.8 % 13.5 % Platelet Count 229 TH/MM3 216 TH/MM3 Mean Platelet Volume 7.3 FL 7.4 FL Neutrophils (%) (Auto) 62.9 % 87.3 % Lymphocytes (%) (Auto) 19.8 % 7.2 % Monocytes (%) (Auto) 15.0 % 5.3 % Eosinophils (%) (Auto) 1.9 % 0.1 % Basophils (%) (Auto) 0.4 % 0.1 % Neutrophils # (Auto) 5.7 TH/MM3 6.6 TH/MM3 Lymphocytes # (Auto) 1.8 TH/MM3 0.5 TH/MM3 Monocytes # (Auto) 1.4 TH/MM3 0.4 TH/MM3 Eosinophils # (Auto) 0.2 TH/MM3 0.0 TH/MM3 Basophils # (Auto) 0.0 TH/MM3 0.0 TH/MM3 CBC Comment DIFF FINAL DIFF FINAL Differential Comment Erythrocyte Sedimentation Rate 56 mm/hr Laboratory Tests Test 08/02/16 08/02/16 08/03/16 15:35 15:45 05:45 Sodium Level 136 MEQ/L 138 MEQ/L Potassium Level 4.4 MEQ/L 4.4 MEQ/L Chloride Level 101 MEQ/L 103 MEQ/L Carbon Dioxide Level 27.5 MEQ/L 25.7 MEQ/L Anion Gap 8 MEQ/L 9 MEQ/L Blood Urea Nitrogen 23 MG/DL 20 MG/DL Creatinine 1.24 MG/DL 1.17 MG/DL Estimat Glomerular Filtration 55 ML/MIN 59 ML/MIN Rate Random Glucose 104 MG/DL 184 MG/DL Calcium Level 8.9 MG/DL 8.9 MG/DL C-Reactive Protein 7.04 MG/DL Lactic Acid Level 1.3 mmol/L Hemoglobin A1c 5.8 % Total Bilirubin 0.6 MG/DL Aspartate Amino Transf 19 U/L (AST/SGOT) Alanine Aminotransferase 19 U/L (ALT/SGPT) Alkaline Phosphatase 52 U/L Total Protein 7.4 GM/DL Albumin 3.0 GM/DL Microbiology Date/Time Procedure Status Source Growth 08/02/16 15:35 Aerobic Blood Culture - Preliminary Resulted Blood Peripheral NO GROWTH IN 2 DAYS 08/02/16 15:35 Anaerobic Blood Culture - Preliminary Resulted Blood Peripheral NO GROWTH IN 2 DAYS 08/02/16 15:50 Aerobic Blood Culture - Preliminary Resulted Blood Peripheral NO GROWTH IN 2 DAYS 08/02/16 15:50 Anaerobic Blood Culture - Preliminary Resulted Blood Peripheral NO GROWTH IN 2 DAYS 08/02/16 21:10 Gram Stain - Final Resulted Wound Finger 08/02/16 21:10 Wound Culture - Preliminary Resulted Staphylococcus Aureus 08/02/16 21:10 Acid Fast Stain Worksheet Wound Finger Pending 08/02/16 21:10 Mycobacterial Culture Worksheet Wound Finger Pending 08/02/16 21:10 Fungal Smear - Final Resulted Wound Finger NO FUNGAL ELEMENTS SEEN. 08/02/16 21:10 Fungal Culture Resulted Wound Finger Pending 08/02/16 21:10 Gram Stain - Final Resulted Wound Finger 08/02/16 21:10 Wound Culture - Preliminary Resulted Staphylococcus Aureus 08/02/16 21:10 Acid Fast Stain Received Wound Finger Pending 08/02/16 21:10 Mycobacterial Culture Received Wound Finger Pending 08/02/16 21:10 Fungal Smear - Final Resulted Wound Finger NO FUNGAL ELEMENTS SEEN. 08/02/16 21:10 Fungal Culture Resulted Wound Finger Pending PHYSICAL EXAMINATION GENERAL: no acute distress. The patient is awake and alert and oriented. HEAD, EYES, EARS, NOSE, AND THROAT: Head atraumatic. Extraocular movements grossly intact, pupils reactive to light without icterus. Oropharynx no visible lesions or thrush. Moist mucosa. NECK: The neck is supple without adenopathy or swelling. LUNGS: The lungs are clear to auscultation. HEART: The heart is regular S1-S2 without murmurs, rubs or gallops. ABDOMEN: Bowel sounds present, soft, no tenderness appreciated. EXTREMITIES: The left index finger has a surgical dressing in place. There is no redness at the forearm. The left index finger is swollen. There are no streaks of redness visible at the forearm. (+) swelling of the r. leg below the knee. No clubbing or cyanosis. SKIN: No rash. NEUROLOGIC: No gross focal findings. PSYCHIATRIC: The patient is calm and pleasant and cooperative. IMPRESSION 1. Osteomyelitis of the left index finger and also abscess. MSSA. The patient is post incision and drainage and partial amputation and also removal of the nail of the left index finger. 2. Cellulitis of the left forearm, improved. 3. Lymphangitis resolved. 4. Allergy to penicillin. RECOMMENDATIONS 1. Stop vancomycin. 2. Start Ceftriaxone. 3. IV Ceftriaxone x 2 weeks until 08/18/16. Infusion form filled. D/W Dr Camacho. Quentin Jarrett MD Aug 04, 2016 12:16 Quentin Jarrett MD Aug 04, 2016 12:16
[2016-08-04] MEDS ORDERED: TAMSULOSIN HCL 0.4 MG CAP PO ONE (13:00)
--- NOTE | 2016-08-04 13:42 | HHI.FF ---
Infusion Therapy Location of Infusion Therapy: [facility] Infusion Therapy Order Patient Information Patient Weight 77.2 kg Diagnosis: Coded Allergies: Penicillin (Verified Allergy, Severe, Rash, 08/02/16) Administer Medication Ceftriaxone 2 grams IV q 24 hours Stop Treatment: August 18, 2016 Additional Information Venous access: PICC Line Additional Instructions [x] Peripheral flush and dressing changes per protocol [x] Implanted port and central line assigner: * Implanted port: 10 ml Normal Saline followed by 5 ml Heparin 100 units/ml Heparin flush after each use and monthly to maintain. [] May leave port accessed during therapy. [] May leave peripheral site accessed for duration of therapy. [x] If patient has SOB or respiratory distress, check oxygen saturation. If less than 90% or clinical signs of respiratory distress, administer oxygen at 2 L/min. via nasal cannula and notify physician. [x] Anaphylaxis/Reaction orders: * Stop infusion. * Keep IV line open with saline flush. * Notify physician. * Monitor vital signs every 15 minutes until symptoms resolve. * Check Oxygen saturation; Oxygen at 2 L/min. via nasal cannula if less than 90% or clinical signs of respiratory distress. * Administer diphenhydramine (Benadryl) 25 mg IV STAT, (unless patient has received as pre-med). May repeat once, if necessary. * Solu-Cortef 250 mg IVP over 30-60 seconds, use 100 mg vials for each dissolution. * Epinephrine (1mg/1 ml) 0.3 mg subcutaneously or IVP now with any signs of respiratory distress. * Check with physician for new additional pre-med orders if patient is re- challenged or re-treated. [x] May remove PICC line when treatment complete, after confirming with Physician. [x] If the patient is admitted to the hospital, the ED, or transferred via [facility] , complete transfer form including medication reconciliation order sheet. Laboratory Tests Weekly Labs: Quentin Major MD Aug 04, 2016 13:42
[2016-08-04] MEDS: cefTRIAXone INJ 2,000 MG in SODIUM CHLORIDE 0.9% INJ 100 ML IV SCH (13:45)
--- NOTE | 2016-08-04 13:55 | HHI.PR ---
Subjective Remarks Patient c/o pain and swelling of right lower extremity denies cp/sob denies fevers or chills Objective Vitals Vital Signs Date Time Temp Pulse Resp B/P Pulse Ox O2 Delivery O2 Flow Rate FiO2 08/04/16 12:00 97.2 83 18 109/65 95 08/04/16 08:00 97.2 113 18 129/80 95 08/04/16 04:00 97.4 88 19 132/68 96 08/04/16 00:00 97.3 84 18 125/68 96 08/03/16 20:00 97.6 86 19 125/68 95 08/03/16 15:50 97.3 85 20 135/71 95 I/O 08/03/16 08/03/16 08/03/16 08/04/16 08/04/16 08/04/16 07:00 15:00 23:00 07:00 15:00 23:00 Intake Total 200 ml 1492 ml 1157 ml 568 ml Output Total 800 ml 1800 ml 1000 ml Balance -600 ml -308 ml 157 ml 568 ml Intake Oral 200 ml 480 ml 240 ml IV Total 1012 ml 917 ml 568 ml Output Urine Total 800 ml 1800 ml 1000 ml # Bowel Movements 6 1 Result Diagram: 08/03/16 0545 08/03/16 0545 Imaging Last Impressions Upper Extremity Ultrasound 08/02/16 0000 Signed Impressions: Service Date/Time: Tuesday, August 02, 2016 15:47 - CONCLUSION: Negative exam with no evidence of thrombosis. Zaki Ramos MD Hand X-Ray 08/02/16 0000 Signed Impressions: Service Date/Time: Tuesday, August 02, 2016 15:52 - CONCLUSION: 1. 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 2. Soft tissue swelling over the second digit with osteoarthritic change as well. 3. The patient's fingers are flexed. Zaki Ramos MD Hand MRI 08/02/16 0000 Signed Impressions: Service Date/Time: Tuesday, August 02, 2016 19:42 - CONCLUSION: 1. Diffuse soft tissue swelling of the pointer finger. There is ulceration and a 7 mm abscess distally. 2. There is signal abnormality compatible with osteomyelitis throughout the pointer finger distal phalanx. There is focal cortical destruction of the distal tip of the bone. Gerardo Amaro MD Objective Remarks GENERAL: Well-developed well-nourished. In no acute distress. SKIN: Warm and dry. HEENT: Normocephalic. Pupils equal and round. Mucous membranes pink and moist. CARDIOVASCULAR: Regular rate and rhythm. No murmur appreciated. RESPIRATORY: No accessory muscle use. Clear to auscultation. Breath sounds equal bilaterally. GASTROINTESTINAL: Abdomen soft, non-tender, nondistended. Bowel sounds x4. MUSCULOSKELETAL: No clubbing or cyanosis. No edema. Left upper extremity is dressed with dressing C/D/I. Distal phalanx is absent. Right lower extremity is swollen and mildly tender to palpation. NEUROLOGICAL: Awake and alert. No focal neurological deficits. Moves upper and lower extremities spontaneously. Normal speech. PSYCHIATRIC: Appropriate mood and affect; insight and judgment normal. Procedures Status post incision and drainage of left index finger with revision amputation of left index finger DIP on 08/03/16. Medications and IVs Current Medications Medications (Trade) Dose Ordered Sig/Merary Route Start Time Stop Time Status Last Admin (NS 1000 ml Inj) 1,000 ml @ 100 mls/hr Q10H IV 08/02/16 17:18 08/04/16 10:03 (NS Flush) 2 ml UNSCH PRN IV FLUSH 08/02/16 17:30 (NS Flush) 2 ml BID IV FLUSH 08/02/16 21:00 08/03/16 21:08 (Tylenol) 650 mg Q4H PRN PO 08/02/16 17:30 (Zofran Inj) 4 mg Q6H PRN IVP 08/02/16 17:30 (D50w (Vial) Inj) 25 ml UNSCH PRN IV PUSH 08/02/16 17:30 (Glucagon Inj) 1 mg UNSCH PRN OTHER 08/02/16 17:30 ([place] 5-325 Mg) 1 tab Q6H PRN PO 08/02/16 18:00 08/04/16 11:14 (Morphine Inj) 2 mg Q3H PRN IV PUSH 08/02/16 18:00 (Cozaar) 25 mg DAILY PO 08/03/16 09:00 08/04/16 09:55 (Flomax) 0.4 mg HS PO 08/02/16 21:00 08/03/16 21:08 Pravastatin Sodium 20 mg 20 mg DAILY PO 08/03/16 09:00 08/04/16 09:55 (Rocephin Inj/NS Inj) 100 ml @ 200 mls/hr Q24H IV 08/04/16 13:00 Urinary Catheter: No Vascular Central Line Catheter: No A/P Problem List: (1) Osteomyelitis of finger of left hand ICD Code: M86.9 Status: Acute Plan: Hand x-ray with soft tissue swelling. Doppler ultrasound negative for DVT. Hand surgery consulted, appreciate recommendations. MRI stat was ordered by hand surgery, it showed osteomyelitis of the distal phalanx of the left index finger. Given the above findings, amputation of the left index finger was proposed to the patient which accepted. Patient was initially admitted to the medical floor on IV antibiotics - IV vancomycin and IV Levaquin. Patient is status post incision and drainage off abscess of the left index finger and revision with amputation of the distal phalanx. Continue pain control with [place] and morphine sulfate. 08/04 IV Levaquin discontinued by infectious disease. Continue IV vancomycin. Wound cultures growing staph aureus. Continue antibiotic management is per ID recommendations. Further postsurgical management as per hand surgery. (2) Cellulitis of left index finger ICD Code: L03.012 Status: Acute Plan: Patient initially on IV vancomycin and IV Levaquin. Iv antibiotics as per ID recommendations 08/04 Levaquin Dc'd. Patient on Vancomycin. (3) Abscess of left index finger ICD Code: L02.512 Status: Acute Plan: Status post incision and drainage of the left index finger abscess. Wound cultures growing staph aureus. (4) Diabetes ICD Code: E11.9 Status: Chronic Plan: Metformin helped on admission. Continue SSI with insulin NovoLog and continue to monitor Accu-Cheks. Blood sugar seems to be stable. Hemoglobin A1c is 5.8. Diabetes is well controlled. (5) ALEXANDRE (acute kidney injury) ICD Code: N17.9 Status: Acute Plan: Creatinine elevated 1.24, however no previous labs for comparison. The patient placed on IV fluids. Creatinine trending down to 1.1. Continue to monitor BUN/creatinine, strict I' s and O's. Possible postobstructive ALEXANDRE given urinary retention which was addressed today. (6) HTN (hypertension) ICD Code: I10 Status: Chronic Plan: BP seems to be stable. Continue losartan. (7) HLD (hyperlipidemia) ICD Code: E78.5 Status: Chronic Plan: Continue statin (8) Urinary retention ICD Code: R33.9 Status: Acute Plan: This a.m. patient with lower abdominal pain. Veliz catheter inserted. 07/15 Discussed with RN, remove veliz catheter and start voiding trials. will give and extra dose of Flomax. (9) BPH (benign prostatic hyperplasia) ICD Code: N40.0 Status: Chronic Plan: Continue Flomax. Assessment and Plan GI prophylaxis: Add PPI. DVT prophylaxis: SCDs, will place on heparin subcutaneous . Discharge Planning Continue to monitor in the medical floor. Discharge pending and surgery clearance. Problem Qualifiers (1) Diabetes: Qualified Code: E11.8 - Type 2 diabetes mellitus with complication, without long-term current use of insulin (2) HTN (hypertension): Qualified Code: I10 - Essential hypertension Marlon Enrique MD Aug 04, 2016 13:55
[2016-08-04 16:00] VITALS: BP 129/65; PULSE 80; RESP 20; TEMP 98; O2SAT 97
--- NOTE | 2016-08-04 17:41 | RADRPT ---
EXAM DATE/TIME: 08/04/2016 15:27 [facility] COMPARISON: No previous studies available for comparison. INDICATIONS : Right leg edema. MEDICAL HISTORY : Benign prostatic hyperplasia, (BPH) Arthritis. Diabetes. SURGICAL HISTORY : Left hip replacement. ENCOUNTER: Initial ACUITY: 2 day PAIN SCORE: 7/10 LOCATION: Right leg. TECHNIQUE: Venous ultrasound of the leg was performed from the inguinal ligament to the proximal calf. Real-baltazar e, color Doppler and spectral tracing, compression and augmentation techniques were used. FINDINGS: There is normal compressibility of the deep venous system from the inguinal region to the proximal ca lf. No echogenic clot is seen in the lumen of the common femoral, femoral, popliteal, and posterior tibial veins. There is a normal response of the venous system to proximal and distal augmentation an d respiration. 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 CONCLUSION: 1. No evidence of venous thrombosis. 2. Dumont's cyst. Zaki Ramos MD on August 04, 2016 at 17:34 Board Certified Radiologist. This report was verified electronically.
[2016-08-04 20:00] VITALS: BP 122/70; PULSE 87; RESP 19; TEMP 99.7; O2SAT 95
[2016-08-04] MEDS: TAMSULOSIN HCL 0.4 MG CAP PO SCH (20:02)
--- NOTE | 2016-08-04 22:56 | PD.ORT.PN ---
Subjective Subjective Remarks Patient reports minimal pain left index finger. Baseline paresthesias. Objective Vitals Vital Signs Date Time Temp Pulse Resp B/P Pulse Ox O2 Delivery O2 Flow Rate FiO2 08/04/16 20:00 99.7 87 19 122/70 95 08/04/16 16:00 98.0 80 20 129/65 97 08/04/16 12:00 97.2 83 18 109/65 95 08/04/16 08:00 97.2 113 18 129/80 95 08/04/16 04:00 97.4 88 19 132/68 96 08/04/16 00:00 97.3 84 18 125/68 96 I/O 08/03/16 08/03/16 08/03/16 08/04/16 08/04/16 08/04/16 07:00 15:00 23:00 07:00 15:00 23:00 Intake Total 200 ml 1492 ml 1157 ml 568 ml 772 ml 1640 ml Output Total 800 ml 1800 ml 1000 ml 650 ml Balance -600 ml -308 ml 157 ml 568 ml 772 ml 990 ml Intake Oral 200 ml 480 ml 240 ml 1640 ml IV Total 1012 ml 917 ml 568 ml 772 ml Output Urine Total 800 ml 1800 ml 1000 ml 650 ml # Voids 4 # Bowel Movements 6 1 1 Result Diagram: 08/03/16 0545 08/03/16 0545 Imaging Last 24 hours Impressions Upper Extremity Ultrasound 08/02/16 0000 Signed Impressions: Service Date/Time: Tuesday, August 02, 2016 15:47 - CONCLUSION: Negative exam with no evidence of thrombosis. Zaki Ramos MD Hand X-Ray 08/02/16 Signed Impressions: Service Date/Time: Tuesday, August 02, 2016 15:52 - CONCLUSION: 1. 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 2. Soft tissue swelling over the second digit with osteoarthritic change as well. 3. The patient's fingers are flexed. Zaki Ramos MD Hand MRI 08/02/16 0000 Signed Impressions: Service Date/Time: Tuesday, August 02, 2016 19:42 - CONCLUSION: 1. Diffuse soft tissue swelling of the pointer finger. There is ulceration and a 7 mm abscess distally. 2. There is signal abnormality compatible with osteomyelitis throughout the pointer finger distal phalanx. There is focal cortical destruction of the distal tip of the bone. Gerardo Amaro MD Objective Remarks Dressing changed, improved erythema over elbow and finger but moderate erythema remains over finger, mild amount of serous drainage from central portion left index finger wound, baseline ROM, good capillary refill to flap Assessment & Plan Assessment and Plan POD1 s/p I&D left index finger, revision amputation left index finger -IV Ab per ID, Cultures + Staph, Pathology + osteomyelitis -Glucose control -Daily dressing changes, okay to discharge per hand surgery will close followup in office next week, if patient remains in hospital per ID, Dr Sanderson to change dressing this weekend Dianne Newton MD Aug 04, 2016 22:56
[2016-08-05] VITALS: BP 139/80; PULSE 92; RESP 18; TEMP 98.9; O2SAT 95
[2016-08-05 04:00] VITALS: BP 144/88; PULSE 91; RESP 21; TEMP 97.8; O2SAT 96
[2016-08-05] MEDS: SODIUM CHLOR 0.9% 1000 ML INJ 1,000 ML IV SCH ×3 (05:18→15:18)
[2016-08-05] MEDS: INSULIN ASPART SUPPLEMENTAL SCALE SQ SCH ×4 (07:00→20:42)
[2016-08-05] MEDS: SODIUM CHLORIDE 0.9% FLUSH 10 ML FLUSH IV FLUSH SCH ×2 (09:00→20:43)
[2016-08-05] MEDS: LOSARTAN 25 MG TAB PO SCH (09:02)
[2016-08-05] MEDS: PRAVASTATIN SOD 20 MG TAB PO SCH (09:02)
[2016-08-05 09:19] VITALS: BP 167/98; PULSE 101; RESP 18; TEMP 96.8; O2SAT 95
--- NOTE | 2016-08-05 13:32 | PD.ORT.PN ---
Subjective Post Op Day #: 3 Subjective Remarks doing well--wants to be able to move the left index finger better Objective Vitals Vital Signs Date Time Temp Pulse Resp B/P Pulse Ox O2 Delivery O2 Flow Rate FiO2 08/05/16 09:19 96.8 101 18 167/98 95 08/05/16 04:00 97.8 91 21 144/88 96 08/05/16 00:00 98.9 92 18 139/80 95 08/04/16 20:00 99.7 87 19 122/70 95 08/04/16 16:00 98.0 80 20 129/65 97 I/O 08/04/16 08/04/16 08/04/16 08/05/16 08/05/16 08/05/16 07:00 15:00 23:00 07:00 15:00 23:00 Intake Total 568 ml 772 ml 1640 ml 1498 ml Output Total 1050 ml 200 ml Balance 568 ml 772 ml 590 ml 1298 ml Intake Oral 1640 ml IV Total 568 ml 772 ml 1498 ml Output Urine Total 1050 ml 200 ml # Voids 5 2 # Bowel Movements 2 1 Result Diagram: 08/03/16 0545 08/03/16 0545 Other Results culture growing MSSA and Group D enterococcus Objective Remarks no erythema of left wrist, forearm or elbow; minimal erythema left index finger to the PIP joint and moderate edema of the left index finger only. Wound is clean and no expressible drainage with moderate swelling. Assessment & Plan Ortho Post Op Day #: 3 Problem List: Assessment and Plan POD 3 s/p I&D left index finger, revision amputation left index finger -IV Ab per ID--Rocepin -Got PICC line this am per vascular access team -Wound cleaned with peroxide and placed Xeroform gauze, sterile 4x4s, 2" Verenice and 2" Bora wrap lightly so he can try to move the finger more. -Keep dressing clean and dry -Spoke with egg caser and HH care being setup for IV Rocephin daily -Discussed with he and his (who is a nurse) and his is willing to do IV antibiotics with instruction on the line care -Told to call our office August 07, to make an appt. to see Dr. Newton that day Bella Sanderson MD Aug 05, 2016 13:32
[2016-08-05] MEDS: cefTRIAXone INJ 2,000 MG in SODIUM CHLORIDE 0.9% INJ 100 ML IV SCH (13:58)
[2016-08-05] MEDS ORDERED: HYDR-3516 PO (14:42)
--- NOTE | 2016-08-05 15:37 | HHI.FF ---
Face to Face Verification Diagnosis: (1) Abscess of left index finger (2) Cellulitis of left index finger (3) Osteomyelitis of finger of left hand (4) HLD (hyperlipidemia) (5) BPH (benign prostatic hyperplasia) (6) HTN (hypertension) (7) Diabetes Home Health Nursing Order: Wound care and dressing changes Nursing assessment with vital signs IV medication administration I have seen patient Rocco Coreas on 08/05/16. My clinical findings support the need for the requested home health care services because: Infection w/ risk of complications Injectable med education/admin I certify that my clinical findings support that this patient is homebound because: Unsafe to leave home unassisted Unable to use public transportation Marlon Enrique MD Aug 05, 2016 15:37
[2016-08-05] MEDS ORDERED: PHARMACY ORDERED LAB ONE (15:45)
--- NOTE | 2016-08-05 15:49 | MP ---
cc: DIANNE NEWTON DATE OF SURGERY 08/02/16 PREOPERATIVE DIAGNOSIS Osteomyelitis left index finger with associated abscess. POSTOPERATIVE DIAGNOSIS Osteomyelitis left index finger with associated abscess. PROCEDURE 1. Incision and drainage abscess left index finger deep associated with osteomyelitis left index finger. 2. Revision amputation left index finger through the distal interphalangeal joint with direct closure. SURGEON Dr. Dianne Newton ANESTHESIA General and local. TOURNIQUET TIME 19 minutes at 250 mmHg without Esmarch. SPECIMEN Cultures x2 as well as bone biopsy for pathology and culture. INDICATIONS FOR PROCEDURE Rocco Coreas is a pleasant 86-year-old right-hand dominant male who reports injuring his left index finger with a saw 10 years ago and with 3 weeks of pain and swelling over the left index finger as well as erythema he presented to the emergency room today due to purulent drainage from the tip of the left index finger as well as increasing erythema and swelling over the left elbow. He was evaluated and found to have osteomyelitis by MRI of the left index finger with blood cultures still pending. At this time I recommended incision and drainage, likely revision amputation through the distal interphalangeal joint, removal of the nail and nail plate and nail bed and the patient elected to proceed. The risks were explained and are not to limited to sepsis, infection, wound complications, need for additional surgeries, , PE, DVT, pain, stiffness and he elected to proceed. DESCRIPTION OF PROCEDURE The patient was identified in the preoperative holding area and the correct extremity was marked. The patient was taken to the operating room where anesthesia was induced. The left upper extremity was prepped and draped in normal sterile fashion. A culture was taken from the superficial purulence. Then the open hole at the edge of the finger was opened and there was obvious destruction of the distal phalanx. The nail was removed and there was obvious destruction of the nail bed with minimal good tissue. The tourniquet was inflated to 250 mmHg for 19 minutes without Esmarch. The remainder of the distal phalanx was debrided back to the DIP joint as all of the bone was not of good quality. This was sent for culture and pathology. The wound was then irrigated with 3 liters of antibiotic saline. The patient was on IV antibiotics from the emergency room including IV vancomycin. The skin edges were cleaned an revision amputation was performed with direct closure and neurectomies of the left index finger. This was performed with chromic. Tourniquet was released. Hemostasis obtained. A digital block was performed with 10 cc of 2% lidocaine without epinephrine. The patient was placed into a soft dressing. He was awoken from anesthesia without any complications. He will remain in the hospital on IV antibiotics. Infectious disease consult following the cultures and close monitoring of his glucose. Will continue to watch the lymphangitis in the elbow and hopefully his symptoms will continue to improve. MD TROY Abdullahi/LUCY /11:58 PM /3:37 PM [email or web address]
[2016-08-05 18:31] VITALS: BP 174/85; PULSE 69; RESP 18; TEMP 96.2
[2016-08-05 20:00] VITALS: BP 170/91; PULSE 80; RESP 18; TEMP 98; O2SAT 96
[2016-08-05] MEDS: TAMSULOSIN HCL 0.4 MG CAP PO SCH (20:43)
--- NOTE | 2016-08-07 08:18 | EKG ---
Date Performed: 08/02/2016 Time Performed: 20:42:21 PTAGE: 86 years EKG: Sinus rhythm LOW QRS VOLTAGE IN PRECORDIAL LEADS BORDERLINE ECG NO PREVIOUS TRACING DOCTOR: Oren Cee Interpretating Date/Time 08/07/2016 08:15:53
--- NOTE | 2016-09-08 11:09 | HHI.DS ---
Discharge Summary Admission Date Aug 02, 2016 at 17:23 Discharge Date: Aug 05, 2016 Admitting Diagnosis cellulitis of left 2nd finger/left arm (1) Osteomyelitis of finger of left hand ICD Code: M86.9 Diagnosis: Principal (2) Cellulitis of left index finger ICD Code: L03.012 Diagnosis: Principal (3) Abscess of left index finger ICD Code: L02.512 Diagnosis: Principal (4) Diabetes ICD Code: E11.9 Diagnosis: Principal (5) ALEXANDRE (acute kidney injury) ICD Code: N17.9 Diagnosis: Principal (6) HTN (hypertension) ICD Code: I10 Diagnosis: Secondary (7) HLD (hyperlipidemia) ICD Code: E78.5 Diagnosis: Secondary (8) Urinary retention ICD Code: R33.9 Diagnosis: Principal (9) BPH (benign prostatic hyperplasia) ICD Code: N40.0 Diagnosis: Principal Procedures Status post incision and drainage of left index finger with revision amputation of left index finger DIP on 08/03/16. Brief History - From Admission 86-year-old male with a past medical history of HTN, HLD, DM, and BPH who presents with left index finger swelling. The patient states that for the past 2 or 3 weeks she's been having swelling of his left index finger. He denies any acute injury. He has a dull ache in the finger, denies any pain. He has some swelling and redness of his left arm now. He was seen at urgent care and referred to the ED for evaluation. He denies any fevers or chills. Hand surgeries contacted from the ED and recommended to the patient nothing by mouth for evaluation and possible I&D in the OR tonight. The patient denies any nausea, abdominal pain, diarrhea, cough. Imaging Last Impressions Lower Extremity Ultrasound 08/04/16 0000 Signed Impressions: Service Date/Time: Thursday, August 04, 2016 15:27 - CONCLUSION: 1. No evidence of venous thrombosis. 2. Dumont's cyst. Zaki Ramos MD Upper Extremity Ultrasound 08/02/16 0000 Signed Impressions: Service Date/Time: Tuesday, August 02, 2016 15:47 - CONCLUSION: Negative exam with no evidence of thrombosis. Zaki Ramos MD Hand X-Ray 08/02/16 0000 Signed Impressions: Service Date/Time: Tuesday, August 02, 2016 15:52 - CONCLUSION: 1. 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 2. Soft tissue swelling over the second digit with osteoarthritic change as well. 3. The patient's fingers are flexed. Zaki Ramos MD Hand MRI 08/02/16 0000 Signed Impressions: Service Date/Time: Tuesday, August 02, 2016 19:42 - CONCLUSION: 1. Diffuse soft tissue swelling of the pointer finger. There is ulceration and a 7 mm abscess distally. 2. There is signal abnormality compatible with osteomyelitis throughout the pointer finger distal phalanx. There is focal cortical destruction of the distal tip of the bone. Gerardo Amaro MD PE at Discharge GENERAL: Well-developed well-nourished. In no acute distress. SKIN: Warm and dry. HEENT: Normocephalic. Pupils equal and round. Mucous membranes pink and moist. CARDIOVASCULAR: Regular rate and rhythm. No murmur appreciated. RESPIRATORY: No accessory muscle use. Clear to auscultation. Breath sounds equal bilaterally. GASTROINTESTINAL: Abdomen soft, non-tender, nondistended. Bowel sounds x4. MUSCULOSKELETAL: No clubbing or cyanosis. No edema. Left upper extremity is dressed with dressing C/D/I. Distal phalanx is absent. Right lower extremity is swollen and mildly tender to palpation. NEUROLOGICAL: Awake and alert. No focal neurological deficits. Moves upper and lower extremities spontaneously. Normal speech. PSYCHIATRIC: Appropriate mood and affect; insight and judgment normal. Pt update on day of discharge Pain controlled, denies fevers and chills. Vital signs stable. Hospital Course (1) Osteomyelitis of finger of left hand Hand x-ray with soft tissue swelling. Doppler ultrasound negative for DVT. Hand surgery consulted, appreciate recommendations. MRI stat was ordered by hand surgery, it showed osteomyelitis of the distal phalanx of the left index finger. Given the above findings, amputation of the left index finger was proposed to the patient which accepted. Patient was initially admitted to the medical floor on IV antibiotics - IV vancomycin and IV Levaquin. Patient is status post incision and drainage off abscess of the left index finger and revision with amputation of the distal phalanx. Continue pain control with [place] and morphine sulfate. 08/04 IV Levaquin discontinued by infectious disease. Continue IV vancomycin. Wound cultures growing staph aureus. Continue antibiotic management is per ID recommendations. Further postsurgical management as per hand surgery. Patient had a PICC line placed for IV Rocephin antibiotic treatment as an outpatient. (2) Cellulitis of left index finger Patient initially on IV vancomycin and IV Levaquin. Iv antibiotics as per ID recommendations 08/04 Levaquin Dc'd. Patient on Vancomycin. (3) Abscess of left index finger Status post incision and drainage of the left index finger abscess. Wound cultures growing staph aureus. (4) Diabetes Metformin helped on admission. Continue SSI with insulin NovoLog and continue to monitor Accu-Cheks. Blood sugar seems to be stable. Hemoglobin A1c is 5.8. Diabetes is well controlled. (5) ALEXANDRE (acute kidney injury) Creatinine elevated 1.24, however no previous labs for comparison. The patient placed on IV fluids. Creatinine trending down to 1.1. Continue to monitor BUN/creatinine, strict I' s and O's. Possible postobstructive ALEXANDRE given urinary retention which was addressed today. (6) HTN (hypertension) BP seems to be stable. Continue losartan. (7) HLD (hyperlipidemia) Continue statin (8) Urinary retention Veliz catheter inserted. 07/15 Discussed with RN, remove veliz catheter and start voiding trials. will give and extra dose of Flomax. Patient was able to urinate well. (9) BPH (benign prostatic hyperplasia Continued Flomax. GI prophylaxis: Add PPI. DVT prophylaxis: SCDs, will place on heparin subcutaneous . Pt Condition on Discharge: Stable Discharge Disposition: Discharge Home Discharge Time: <= 30 minutes Discharge Instructions DIET: Follow Instructions for: Diabetic Diet Activities you can perform: Regular-No Restrictions Activities to Avoid: Strenuous Activity Follow up Referrals: Orthopedics - 2-3 Days with Dianne Newton MD PCP Follow-up - 2 Weeks New Medications: Hydrocodone-Acetaminophen (Hydrocodone-Acetaminophen) 5-325 mg Tab 1 TAB PO Q6H PRN pain #30 TAB Continued Medications: Losartan (Losartan) 25 Mg Tab 25 MG PO DAILY Blood Pressure Management #30 Ref 0 TAB Metformin (Metformin) 500 Mg Tab 500 MG PO BIDPC With meals Blood Sugar Management #60 Ref 0 TAB Simvastatin (Simvastatin) 10 Mg Tab 10 MG PO DAILY Cholesterol Management #30 Ref 0 TAB Tamsulosin (Tamsulosin) 0.4 Mg Cap 0.4 MG PO HS Manage Prostate Problems #30 Ref 0 CAP Marlon Enrique MD Sep 08, 2016 11:09
== END 2016-08-05 21:19 | disposition home or self-care (01) | DRG 580 ==
LOC: NEPC 15:20 → NEDA 17:23 → HOCA 22:51
PROVIDERS: ADMIT Hospitalist; ATTEND Hospitalist
PROC: 0PBV0ZX Excision of Left Finger Phalanx, Open Approach, Diagnostic (ICD-10-PCS; 2016-08-02)
PROC: 0X9K0ZX Drainage of Left Hand, Open Approach, Diagnostic (ICD-10-PCS; 2016-08-02)
PROC: 0X6P0Z3 Detachment at Left Index Finger, Low, Open Approach (ICD-10-PCS; principal; 2016-08-02 20:43)
DX: L02.512 Cutaneous abscess of left hand (principal); M86.142 Other acute osteomyelitis, left hand; E11.69 Type 2 diabetes mellitus with other specified complication; L03.114 Cellulitis of left upper limb; I10 Essential (primary) hypertension; M19.042 Primary osteoarthritis, left hand; N40.0 Benign prostatic hyperplasia without lower urinary tract symptoms; E78.5 Hyperlipidemia, unspecified; Z87.891 Personal history of nicotine dependence; Z88.0 Allergy status to penicillin; Z79.84 Long term (current) use of oral hypoglycemic drugs
CPT/HCPCS: 36569; 73130; 73220; 76937; 80048; 80053; 82948; 83036; 83605; 85025; 85652; 86140; 86403; 87015; 87040; 87070; 87077; 87102; 87116; 87118; 87147; 87185; 87186; 87205; 87206; 88305; 88307; 88311; 93005; 93971; 96374; A9579; J0690; J0696; J1815; J1956; J2405; J3010; J3370; J7030; J7050; J7120

== ENCOUNTER 2018-04-09 14:30 | Inpatient (IN) ==
--- NOTE | 2018-04-09 15:26 | ED ---
HPI General Chief Complaint: Fever Stated Complaint: cold symptoms Time Seen by Provider: 04/09/18 14:35 Source: patient and family Mode of arrival: wheelchair Limitations: altered mental status History of Present Illness HPI Narrative: 87-year-old male that presents to the ED for evaluation of altered mental status and fever and chills and cough. Per patient and family he has had the symptoms for about a week now. He has a history of early dementia as well as diabetes and high blood pressure. Per who takes care of the patient he has been acting like a "2-year-old ". He seems to be more forgetful than his usual and he comes and goes. He has been complaining of cough and congestion. Otherwise some fevers chills and sweats. Per she has been sick with a similar picture and she herself seems to be getting better. Patient himself has no complaints other than cough and congestion. He does appear to be somewhat of a poor historian. No bowel movement issues. No urinary issues. No abdominal pain. Patient states compliance with his medications. Has not seen anybody for this. Related Data Home Medications Medication Instructions Recorded Confirmed calcium carbonate [Calcium 500] 500 mg PO BID 04/09/18 04/09/18 losartan 25 mg PO DAILY 04/09/18 04/09/18 meloxicam 7.5 mg PO DAILY 04/09/18 04/09/18 metformin 500 mg PO BID 04/09/18 04/09/18 multivitamin 1 tab PO DAILY 04/09/18 04/09/18 simvastatin 20 mg PO QPM 04/09/18 04/09/18 tamsulosin 0.4 mg PO BID 04/09/18 04/09/18 Allergies Allergy/AdvReac Type Severity Reaction Status Date / Time latex Allergy Severe Rash Verified 04/09/18 15:25 penicillin G Allergy Severe Rash Verified 04/09/18 17:01 Review of Systems ROS: all other systems reviewed are negative PMFSH History History Provided By: Patient and Family Member Medical History Medical History BPH (benign prostatic hyperplasia) (Acute) Hyperglycemia (Acute) Hyperlipidemia (Acute) Hypertension (Acute) Right knee pain (Acute) Surgical History Surgical History S/P hip replacement (Acute) Social History Social History Substance History: No History of Abuse Second Hand Smoke Exposure: No Smoking Status: Former smoker Tobacco Type: Cigarettes How Often Do You Have a Drink Containing Alcohol: Never Recent Travel in [facility] within the Last 8 Weeks: No Recent Out of Country Travel within the Last 8 Weeks: No Exam Narrative Exam Narrative: GENERAL: Well appearing SKIN: Focused skin assessment warm/dry. HEAD: Atraumatic. Normocephalic. EYES: Pupils equal and round. No scleral icterus. No injection or drainage. ENT: No nasal bleeding or discharge. Mucous membranes pink and moist. Tongue is midline. No Uvula deviation. No meningeal signs noted. No lymphadenopathy noted. NECK: Trachea midline. No JVD. CARDIOVASCULAR: Regular rate and rhythm. No murmur appreciated. RESPIRATORY: No accessory muscle use. Clear to auscultation. Breath sounds equal bilaterally. GASTROINTESTINAL: Abdomen soft, non-tender, nondistended. Hepatic and splenic margins not palpable. MUSCULOSKELETAL: No obvious deformities. No clubbing. No cyanosis. No edema. Full range of motion of the upper and lower extremities bilaterally. 2+ pulses bilaterally. NEUROLOGICAL: Awake and alert. No obvious cranial nerve deficits. Motor grossly within normal limits. Normal speech. PSYCHIATRIC: Slightly altered mood and affect; insight and judgment normal. Course Initial Documented Vital Signs Temperature 99.2 F 04/09/18 14:32 Pulse Rate 95 H 04/09/18 14:32 Respiratory Rate 20 04/09/18 14:32 Blood Pressure 141/75 H 04/09/18 14:32 Pulse Oximetry 95 04/09/18 14:32 Last Documented Vital Signs Temperature 99.7 F H 04/09/18 17:16 Pulse Rate 87 04/09/18 17:16 Respiratory Rate 20 04/09/18 17:16 Blood Pressure 117/58 L 04/09/18 17:16 Pulse Oximetry 98 04/09/18 17:16 Medical Decision Making JAYDEN Attestation JAYDEN supervised visit: Yes Attestation: I, Dr. Cabello, have reviewed the advance practice practitioner's documentation and am in agreement, met with the patient face to face, made the diagnosis, and the medical decision making was done by me. *My assessment and Findings: Urosepsis admission. Pt stable to med/surgical floor with telemetry. MDM Narrative Medical decision making narrative: 87-year-old male who presents to the ED for evaluation of fever and altered mental status. Patient was properly examined and was found to have signs and symptoms of unclear etiology. Likely bronchitis versus pneumonia. Patient does have early dementia and appears to have alteration because of the infection. Labs and imaging will be ordered. Labs and imaging showed leukocytosis and UTI. At This time the recommendation is for admission for further evaluation and treatment. Case was discussed with my attending Dr. Cabello who agrees with this. Patient was made aware of findings and recommendation for admission. Patient and family agree with this. Patient was admitted to the hospital after Dr. Ramirez agreed to admission to his service. Medical Screen Exam Complete: Yes Emergency Medical Condition: Yes Differential Diagnosis Differential Diagnosis: Altered mental status versus bronchitis versus pneumonia versus influenza versus UTI versus congestion Medical Records Medical records reviewed: Yes I reviewed the patient's medical records. Lab Data Lab results reviewed: Yes I reviewed the patient's lab results. Result diagrams: 04/09/18 15:16 04/09/18 15:16 Lab Results 04/09/18 04/09/18 04/09/18 Range/Units 15:10 15:16 15:16 WBC 19.1 H (4.0-11.0) th/mm3 RBC 4.13 L (4.50-5.90) mil/mm3 Hgb 13.6 (13.0-17.0) gm/dL Hct 38.6 L (39.0-51.0) % MCV 93.5 (80.0-100.0) fL MCH 32.9 (27.0-34.0) pg MCHC 35.2 (32.0-36.0) % RDW 14.2 (11.6-17.2) % Plt Count 214 (150-450) th/mm3 MPV 7.2 (7.0-11.0) fL Neut % (Auto) 88.2 H (16.0-70.0) % Lymph % (Auto) 4.9 L (9.0-44.0) % [place] % (Auto) 6.5 (0.0-8.0) % Eos % (Auto) 0.0 (0.0-4.0) % Baso % (Auto) 0.4 (0.0-2.0) % Neut # (Auto) 16.9 H (1.8-7.7) th/mm3 Lymph # (Auto) 0.9 L (1.0-4.8) th/mm3 [place] # (Auto) 1.3 H (0.0-0.9) th/mm3 Eos # (Auto) 0.0 (0.0-0.4) th/mm3 Baso # (Auto) 0.1 (0.0-0.2) th/mm3 WBC Differential . Differential Comment Auto diff final Sodium 134 L (136-145) meq/L Potassium 4.4 (3.5-5.1) meq/L Chloride 100 (98-107) meq/L Carbon Dioxide 25.0 (21.0-32.0) meq/L Anion Gap 9 (5-15) meq/L BUN 29 H (7-18) mg/dL Creatinine 1.44 H (0.60-1.30) mg/dL Estimated GFR 46 L (>89) mL/min POC Glucose (68-110) mg/dl Random Glucose 128 H (74-106) mg/dL Lactic Acid (0.4-2.0) mmol/L Calcium 8.5 (8.5-10.1) mg/dL Total Bilirubin 1.5 H (0.2-1.0) mg/dL AST 35 (15-37) U/L ALT 29 (12-78) U/L Alkaline Phosphatase 72 (45-117) U/L Troponin I Less than 0.02 L (0.02-0.05) ng/mL Total Protein 7.9 (6.4-8.2) g/dL Albumin 3.5 (3.4-5.0) g/dL Urine Color Yellow (Yellw/Straw) Urine Clarity Cloudy H (Clear) Urine pH 5.0 (5.0-8.5) Ur Specific [place] 1.024 (1.002-1.035) Urine Protein 100 H (Neg-Trace) mg/dL Urine Glucose (UA) Negative (Negative) mg/dL Urine Ketones Trace H (Negative) mg/dL Urine Occult Blood Large H (Negative) Urine Nitrate Positive H (Negative) Urine Bilirubin Negative (Negative) Urine Urobilinogen 4 or greater (Less than 2) mg/dL Ur Leukocyte Esterase Large H (Negative) Urine RBC 8 H (0-3) /hpf Urine WBC (0-5) /hpf Urine WBC Clumps Moderate H (None) Ur Squamous Epith Cells 4 (0-5) /hpf Urine Bacteria Many H (None) /hpf Urine Mucus Few H (Occasional) /lpf Micro UA Comment Culture indicated Ur Microscopic Review Not Reportable Urine Culture Comments Culture indicated 04/09/18 04/09/18 Range/Units 15:16 17:14 WBC (4.0-11.0) th/mm3 RBC (4.50-5.90) mil/mm3 Hgb (13.0-17.0) gm/dL Hct (39.0-51.0) % MCV (80.0-100.0) fL MCH (27.0-34.0) pg MCHC (32.0-36.0) % RDW (11.6-17.2) % Plt Count (150-450) th/mm3 MPV (7.0-11.0) fL Neut % (Auto) (16.0-70.0) % Lymph % (Auto) (9.0-44.0) % [place] % (Auto) (0.0-8.0) % Eos % (Auto) (0.0-4.0) % Baso % (Auto) (0.0-2.0) % Neut # (Auto) (1.8-7.7) th/mm3 Lymph # (Auto) (1.0-4.8) th/mm3 [place] # (Auto) (0.0-0.9) th/mm3 Eos # (Auto) (0.0-0.4) th/mm3 Baso # (Auto) (0.0-0.2) th/mm3 WBC Differential Differential Comment Sodium (136-145) meq/L Potassium (3.5-5.1) meq/L Chloride (98-107) meq/L Carbon Dioxide (21.0-32.0) meq/L Anion Gap (5-15) meq/L BUN (7-18) mg/dL Creatinine (0.60-1.30) mg/dL Estimated GFR (>89) mL/min POC Glucose 128 H (68-110) mg/dl Random Glucose (74-106) mg/dL Lactic Acid 1.6 (0.4-2.0) mmol/L Calcium (8.5-10.1) mg/dL Total Bilirubin (0.2-1.0) mg/dL AST (15-37) U/L ALT (12-78) U/L Alkaline Phosphatase (45-117) U/L Troponin I (0.02-0.05) ng/mL Total Protein (6.4-8.2) g/dL Albumin (3.4-5.0) g/dL Urine Color (Yellw/Straw) Urine Clarity (Clear) Urine pH (5.0-8.5) Ur Specific [place] (1.002-1.035) Urine Protein (Neg-Trace) mg/dL Urine Glucose (UA) (Negative) mg/dL Urine Ketones (Negative) mg/dL Urine Occult Blood (Negative) Urine Nitrate (Negative) Urine Bilirubin (Negative) Urine Urobilinogen (Less than 2) mg/dL Ur Leukocyte Esterase (Negative) Urine RBC (0-3) /hpf Urine WBC (0-5) /hpf Urine WBC Clumps (None) Ur Squamous Epith Cells (0-5) /hpf Urine Bacteria (None) /hpf Urine Mucus (Occasional) /lpf Micro UA Comment Ur Microscopic Review Urine Culture Comments Imaging Data Attestation: I personally reviewed and interpreted this imaging study as follows : Radiologist's impression: Chest X-Ray 04/09/18 14:48 CONCLUSION: Mild basilar density, probably atelectasis. Head CT 04/09/18 14:48 CONCLUSION: 1. No acute intracranial abnormalities. . Discharge Plan Discharge Disposition Patient Disposition: ED Admit(ED Internal Use Only) Discharge Order Discharge Orders: ED Use Only Admit Order (Routine); Ordered 04/09/18 Ordered By: Rafael Rouse Discharge Details Diagnosis: Altered mental status, Sepsis, Acute UTI Physicians Team ED Provider: Vlad Cabello ED Midlevel Provider: Rafael Rouse Primary Care Provider: Brent Walker Attending Provider: Jose Ramirez Other Providers: [employer] Status ED Status: Admitted Observation Patient
[2018-04-09 15:33] LABS: Baso # (Auto) 0.1 th/mm3 (0.0-0.2); Baso % (Auto) 0.4 % (0.0-2.0); Hematocrit 38.6 % (39.0-51.0); Hemoglobin 13.6 gm/dL (13.0-17.0); Lymph # (Auto) 0.9 th/mm3 (1.0-4.8); Lymph % (Auto) 4.9 % (9.0-44.0); Mean Corpuscular HGB Conc 35.2 % (32.0-36.0); Mean Corpuscular Hemoglobin 32.9 pg (27.0-34.0); Mean Corpuscular Volume 93.5 fL (80.0-100.0); Mean Platelet Volume 7.2 fL (7.0-11.0); Mono # (Auto) 1.3 th/mm3 (0.0-0.9); Mono % (Auto) 6.5 % (0.0-8.0); Neut # (Auto) 16.9 th/mm3 (1.8-7.7); Neut % (Auto) 88.2 % (16.0-70.0); Platelet Count 214 th/mm3 (150-450); Red Blood Count 4.13 mil/mm3 (4.50-5.90); Red Cell Distribution Width 14.2 % (11.6-17.2); White Blood Count 19.1 th/mm3 (4.0-11.0)
--- NOTE | 2018-04-09 15:51 | XR ---
EXAM DATE: 04/09/2018 3:37 PM EST AGE/SEX: 87 years / Male INDICATIONS: Fever, cough and shortness of breath. CLINICAL DATA: This is the patient's initial encounter. Patient reports that signs and symptoms have been present for 1 week and indicates a pain score of 0/10. MEDICAL/SURGICAL HISTORY: Hypertension. Diabetes. None. COMPARISON: No prior exams available for comparison. FINDINGS: A single AP view of the chest demonstrates the lungs to be symmetrically aerated without evidence of mass, infiltrate or effusion. Mild basilar atelectasis. The cardiomediastinal contours are unremarkab le. Osseous structures are intact. CONCLUSION: Mild basilar density, probably atelectasis. Electronically signed by: Mitch Maria MD Board Certified Radiologist 04/09/2018 3:49 PM EST
[2018-04-09 15:52] LABS: Bacteria,Urine Many /hpf; Bilirubin,Urine Negative (Negative); Clarity,Urine Cloudy (Clear); Glucose,Urine (UA) Negative (Negative); Leukocyte Esterase,Urine Large (Negative); Mucus,Urine Few /lpf (Occasional); Nitrite,Urine Positive (Negative); Specific Gravity,Urine 1.024 (1.002-1.035); Squamous Epithelial Cell,Urine 4 /hpf (0-5); Urobilinogen,Urine 4 or Greater mg/dL (Less than 2)
[2018-04-09 15:53] LABS: Color,Urine Yellow (Yellw/Straw)
--- NOTE | 2018-04-09 16:04 | CT ---
EXAM DATE: 04/09/2018 3:58 PM EST AGE/SEX: 87 years / Male INDICATIONS: Fever, cough and congestion. CLINICAL DATA: This is the patient's initial encounter. Patient reports that signs and symptoms have been present for 1 day and indicates a pain score of 0/10. MEDICAL/SURGICAL HISTORY: Hypertension. None. RADIATION DOSE: 39.27 CTDI (mGy) COMPARISON: No prior exams available for comparison. TECHNIQUE: CT of the head without contrast. Using automated exposure control and adjustment of the mA and/or kV according to patient size, radiation dose was kept as low as reasonably achievable to ob tain optimal diagnostic quality images. DICOM format image data is available electronically for revi ew and comparison. FINDINGS: Cerebrum: The ventricles are normal for age. No evidence of midline shift, mass lesion, hemorrhage or acute infarction. No extraaxial fluid collections are seen. Posterior Fossa: The cerebellum and brainstem are intact. The 4th ventricle is midline. The cerebe llopontine angle is unremarkable. Extracranial: The visualized portion of the orbits is intact. Skull: The calvaria is intact. No evidence of skull fracture. CONCLUSION: 1. No acute intracranial abnormalities. . Electronically signed by: Mitch Maria MD Board Certified Radiologist 04/09/2018 4:03 PM EST
[2018-04-09] MEDS ORDERED: Acetaminophen 325 MG Tablet PO ONE (16:05)
[2018-04-09 16:13] LABS: Albumin 3.5 g/dL (3.4-5.0); Anion Gap 9 meq/L (5-15); Aspartate Aminotransferase 35 U/L (15-37); Blood Urea Nitrogen 29 mg/dL (7-18); Calcium 8.5 mg/dL (8.5-10.1); Chloride 100 meq/L (98-107); Glomerular Filtration Rate 46 mL/min (>89); Glucose,Random 128 mg/dL (74-106); Potassium 4.4 meq/L (3.5-5.1); Sodium 134 meq/L (136-145)
[2018-04-09 16:15] LABS: Alanine Aminotransferase 29 U/L (12-78); Alkaline Phosphatase 72 U/L (45-117); Total Protein 7.9 g/dL (6.4-8.2)
[2018-04-09] MEDS ORDERED: Acetaminophen 325 MG Tablet PO PRN (16:24)
[2018-04-09] MEDS ORDERED: Bisacodyl 10 MG Supp RECTAL PRN (16:24)
[2018-04-09] MEDS ORDERED: Dextrose 50% in Water 50 ML Vial IV.PUSH PRN (16:27)
--- NOTE | 2018-04-09 16:49 | P.HPIM ---
History of Present Illness Service: Hospitalist Primary Care Physician: Brent Walker Chief Complaint: Congestion History of Present Illness: Mr. Shahid is a very pleasant 87-year-old male with a history of hypertension, diabetes mellitus, hyperlipidemia, BPH who presents to the emergency department due to persistent congestion. Patient reports that for about a week he has been having congestion with phlegm production. He did not have any fever at home. However in the ED his temperature was 101.1 F. He denies any shortness of breath, chest pain. He also denies any dysuria, hematuria, lower abdominal pain. Per ED documentation , patient's reported that patient had altered mental status as well as fever and chills and cough. He has been more forgetful than usual. Patient denies any changes in bowel habits. On arrival, blood pressure 138/76, pulse 78 , respiration 20, temperature 101.1F, O2 saturation 97% on room air. WBC 19.1 K, hemoglobin 13.6, hematocrit 38.6. Sodium 134, BUN 29, creatinine 1.44. Lactic acid 1.6. Past medical history: Hypertension, diabetes mellitus, early dementia Past surgical history: Patient had hip replacement 10 years ago. Social history: Patient denies using alcohol, tobacco, illicit drugs. Family history: No family history of ulcers or Parkinson's. Review of Systems Review of Systems: all other systems reviewed are negative [facility] Medical History Medical History BPH (benign prostatic hyperplasia) (Acute) Hyperglycemia (Acute) Hyperlipidemia (Acute) Hypertension (Acute) Right knee pain (Acute) Surgical History Surgical History S/P hip replacement (Acute) Social History Social History Substance History: No History of Abuse Second Hand Smoke Exposure: No Smoking Status: Former smoker Tobacco Type: Cigarettes How Often Do You Have a Drink Containing Alcohol: Never Recent Travel in [facility] within the Last 8 Weeks: No Recent Out of Country Travel within the Last 8 Weeks: No Immunization History Tetanus Immunization: >5 Years Medications and Allergies Allergies Allergy/AdvReac Type Severity Reaction Status Date / Time latex Allergy Severe Rash Verified 04/09/18 15:25 penicillin G Allergy Severe Rash Verified 04/09/18 17:01 Home Medications Medication Instructions Recorded Confirmed Type calcium carbonate [Calcium 500] 500 mg PO BID 04/09/18 04/09/18 History losartan 25 mg PO DAILY 04/09/18 04/09/18 History meloxicam 7.5 mg PO DAILY 04/09/18 04/09/18 History metformin 500 mg PO BID 04/09/18 04/09/18 History multivitamin 1 tab PO DAILY 04/09/18 04/09/18 History simvastatin 20 mg PO QPM 04/09/18 04/09/18 History tamsulosin 0.4 mg PO BID 04/09/18 04/09/18 History Active Medications: Active Medications Acetaminophen (Tylenol) 650 mg PO Q4H PRN PRN Reason: Headache, fever, pain 1-4 Al Hydroxide/Mg Hydroxide (Milk Of Magnesia Liq) 30 ml PO Q12H PRN PRN Reason: Mild Constipation Bisacodyl (Dulcolax Supp) 10 mg RECTAL DAILY PRN PRN Reason: SEVERE CONSITIPATION Dextrose (D50w Vial) 50 ml IV.PUSH UNSCH PRN PRN Reason: PER HYPOGLYCEMIA PROTOCOL Enoxaparin Sodium (Lovenox Inj) 30 mg SQ Q24H RIKA Glucagon (Glucagon Inj) 1 mg OTHER PRN PRN PRN Reason: for Hypoglycemia Protocol Sodium Chloride (Ns Inj) 1,000 mls @ 75 mls/hr IV.CONT .[id number] RIKA Insulin Aspart (Novolog Insulin Correctional Sugar Inj) 0 unit SQ ACHS RIKA; Protocol Lactulose (Lactulose Liq) 30 ml PO DAILY PRN PRN Reason: SEVERE CONSITIPATION Ondansetron HCl (Zofran Inj) 4 mg IV.PUSH Q6H PRN PRN Reason: NAUSEA OR VOMITING Sennosides (Senokot) 17.2 mg PO Q12H PRN PRN Reason: Moderate Constipation Sodium Chloride (Ns Flush) 2 ml IV.FLUSH BID RIKA Sodium Chloride (Ns Flush) 2 ml IV.FLUSH PRN PRN PRN Reason: FLUSH AFTER USING IV ACCESS Physical Exam Vital signs: Last Vital Signs Temp 101.1 F H 04/09/18 14:34 Pulse 78 04/09/18 16:24 Resp 20 04/09/18 16:24 BP 138/76 04/09/18 16:24 Pulse Ox 97 04/09/18 16:24 Intake & Output 04/07/18 04/08/18 04/09/18 04/10/18 06:59 06:59 06:59 06:59 Weight 77.111 kg Narrative: GENERAL: This is a well-nourished, well-developed patient, in no apparent distress. Oriented to person, place, date. Knows the name of the current president. SKIN: No rashes, ecchymoses or lesions. Warm and dry. HEAD: Atraumatic. Normocephalic. No temporal or scalp tenderness. EYES: Pupils equal round and reactive. No injection or drainage. ENT: Nose without bleeding, purulent drainage or septal hematoma. Airway patent. Hearing aid in place. NECK: Trachea midline. No lymphadenopathy. Supple, nontender, no meningeal signs. CARDIOVASCULAR: Regular rate and rhythm without murmurs, gallops, or rubs. No JVD. RESPIRATORY: Clear to auscultation. Breath sounds equal bilaterally. No wheezes , rales, or rhonchi. GASTROINTESTINAL: Abdomen soft, non-tender, nondistended. No guarding. MUSCULOSKELETAL: Extremities without clubbing, cyanosis, or edema. NEUROLOGICAL: Awake and alert. Cranial nerves II through XII intact. No focal neurological deficits. Normal speech. Results Labs CBC & Chem 7: 04/09/18 15:16 04/09/18 15:16 Imaging Impressions Chest X-Ray 04/09/18 14:48 CONCLUSION: Mild basilar density, probably atelectasis. Head CT 04/09/18 14:48 CONCLUSION: 1. No acute intracranial abnormalities. . Caprini VTE Risk Assessment Caprini VTE Risk Assessment: Moderate/High Risk (score >= 2) Caprini Risk Assessment Model: Point Value = 1 Point Value = 2 Point Value = 3 Point Value = 5 Age 41-60 Minor surgery BMI > 25 kg/m2 Swollen legs Varicose veins or History of unexplained or recurrent spontaneous Oral contraceptives or hormone replacement Sepsis (< 1 month) Serious lung disease, including pneumonia (< 1 month) Abnormal pulmonary function Acute myocardial infarction Congestive heart failure (< 1 month) History of inflammatory bowel disease Medical patient at bed rest Age 61-74 Arthroscopic surgery Major open surgery (> 45 min) Laparoscopic surgery (> 45 min) Malignancy Confined to bed (> 72 hours) Immobilizing plaster cast Central venous access Age >= 75 History of VTE Family history of VTE Factor V Leiden Prothrombin [id number] Lupus anticoagulant Anticardiolipin antibodies Elevated serum homocysteine Heparin-induced thrombocytopenia Other congenital or acquired thrombophilia Stroke (< 1 month) Elective arthroplasty Hip, pelvis, or leg fracture Acute spinal cord injury (< 1 month) Prophylaxis Regimen: Total Risk Factor Score Risk Level Prophylaxis Regimen 0-1 Low Early ambulation 2 Moderate Order ONE of the following: *Sequential Compression Device (SCD) *Heparin 5000 units SQ BID 3-4 Higher Order ONE of the following medications: *Heparin 5000 units SQ TID *Enoxaparin/Lovenox 40 mg SQ daily (WT < 150 kg, CrCl > 30 mL/min) *Enoxaparin/Lovenox 30 mg SQ daily (WT < 150 kg, CrCl > 10-29 mL/min) *Enoxaparin/Lovenox 30 mg SQ BID (WT < 150 kg, CrCl > 30 mL/min) AND/OR *Sequential Compression Device (SCD) 5 or more Highest Order ONE of the following medications: *Heparin 5000 units SQ TID (Preferred with Epidurals) *Enoxaparin/Lovenox 40 mg SQ daily (WT < 150 kg, CrCl > 30 mL/min) *Enoxaparin/Lovenox 30 mg SQ daily (WT < 150 kg, CrCl > 10-29 mL/min) *Enoxaparin/Lovenox 30 mg SQ BID (WT < 150 kg, CrCl > 30 mL/min) AND *Sequential Compression Device (SCD) Assessment and Plan Plan Mr. Coreas is a pleasant 87-year-old male with a history of hypertension, diabetes mellitus, BPH who presents to the emergency department due to altered mental status noted by his . Patient is currently alert oriented x3. He reports congestion with phlegm production for about a week. He denies any fever at home. However, upon admission he was found to have fever 101.1 F. He also met criteria for sepsis due to leukocytosis, respiration 22. Sepsis (WBC 19.1K, respiration 22, suspected infection bronchitis versus pneumonia) Probable community-acquired pneumonia We will initiate ceftriaxone 2 g every 24 hours as well as azithromycin 500 mg p.o. daily. Obtain sputum culture. Currently saturating over 93% on room air. Mental O2 as needed to keep O2 saturation at above 90%. Likely asymptomatic bacteriuria Follow urine culture. However, bacteriuria is likely not significant. Diabetes mellitus Patient takes metformin at home. Last hemoglobin A1c was 5.8. We will initiate sliding scale insulin. If needed will consider long-acting insulin. Goal blood glucose [id number]. Hypertension Patient is currently normotensive. We will hold off using losartan for now due to mild ALEXANDRE. Mild acute kidney injury Creatinine 1.44 on admission. Baseline appears to be around 1.2. We will provide gentle hydration. Repeat BMP, CBC in the morning. Full code. Lovenox 30 mg subcutaneous daily for DVT prophylaxis.
[2018-04-09] MEDS: Sod Chloride 0.9% Inj 1,000 ML IV.CONT SCH (17:12)
[2018-04-09] MEDS: Enoxaparin Inj 30 MG/0.3 ML Syringe SQ SCH (17:12)
[2018-04-09] MEDS: Insulin NovoLOG Aspart Correctional Sugar Inj SQ SCH ×2 (17:15→20:21)
[2018-04-09] MEDS: Azithromycin 250 MG Tablet PO SCH (17:46)
[2018-04-10] MEDS: Sod Chloride 0.9% Inj 1,000 ML IV.CONT SCH ×2 (06:20→19:01)
[2018-04-10 07:33] LABS: Baso % (Auto) 0.2 % (0.0-2.0); Hematocrit 36.1 % (39.0-51.0); Hemoglobin 12.2 gm/dL (13.0-17.0); Lymph # (Auto) 0.7 th/mm3 (1.0-4.8); Lymph % (Auto) 4.2 % (9.0-44.0); Mean Corpuscular HGB Conc 33.9 % (32.0-36.0); Mean Corpuscular Hemoglobin 31.5 pg (27.0-34.0); Mean Corpuscular Volume 92.9 fL (80.0-100.0); Mean Platelet Volume 7.4 fL (7.0-11.0); Mono # (Auto) 0.9 th/mm3 (0.0-0.9); Mono % (Auto) 5.7 % (0.0-8.0); Neut # (Auto) 14.4 th/mm3 (1.8-7.7); Neut % (Auto) 89.9 % (16.0-70.0); Platelet Count 177 th/mm3 (150-450); Red Blood Count 3.89 mil/mm3 (4.50-5.90); Red Cell Distribution Width 14.5 % (11.6-17.2)
[2018-04-10] MEDS: Insulin NovoLOG Aspart Correctional Sugar Inj SQ SCH ×4 (07:45→21:07)
[2018-04-10 08:00] LABS: Carbon Dioxide 22.6 meq/L (21.0-32.0); Potassium 3.6 meq/L (3.5-5.1)
--- NOTE | 2018-04-10 11:52 | P.PNIM ---
Subjective Interval history: Nursing denies any acute changes overnight. Patient himself says he feels fine , wants to go home. Says he came here 2 days ago, but he was only admitted yesterday. Denies any shortness of breath nausea vomiting or chest pain. Physical Exam Vital signs: Vital Signs 04/09/18 14:32 04/09/18 14:34 04/09/18 15:20 Temperature 99.2 F 101.1 F H Pulse Rate 95 H 89 96 H Respiratory Rate 20 22 18 Blood Pressure 141/75 H 143/83 H 143/79 H Pulse Oximetry 95 97 96 04/09/18 16:24 04/09/18 17:16 04/09/18 17:46 Temperature 99.7 F H Pulse Rate 78 87 89 Respiratory Rate 20 20 20 Blood Pressure 138/76 117/58 L 147/90 H Pulse Oximetry 97 98 04/09/18 18:33 04/09/18 20:00 04/10/18 00:00 Temperature 97.6 F 98.7 F 100.1 F H Pulse Rate 83 85 94 H Respiratory Rate 17 15 17 Blood Pressure 110/61 120/59 L 129/71 Pulse Oximetry 94 L 97 94 L 04/10/18 04:00 04/10/18 08:00 04/10/18 08:27 Temperature 99.5 F 98.0 F 97.7 F Pulse Rate 100 H 87 90 Respiratory Rate 17 16 17 Blood Pressure 141/67 H 115/59 L 120/67 Pulse Oximetry 94 L 93 L 93 L Intake & Output 04/09/18 04/10/18 04/10/18 18:59 06:59 18:59 Intake Total 100 / 100 1000 / 1000 Output Total 500 / 500 Balance 100 / 100 500 / 500 Weight 77.6 kg 78.6 kg Intake: IV 100 / 100 1000 / 1000 NS Inj 1,000 ML @ 75 mls/hr IV. 1000 / 1000 CONT .[id number] RIKA Rx#:[id number] Rocephin Inj 2,000 MG In NS Inj 100 / 100 100 ML @ 200 mls/hr IV.SIG Q24H RIKA Rx#:[id number] Output: Urine 500 / 500 Other: # Incontinent Voids 1 # Incontinent Bowel Movements 1 Weight On Admission 77.6 kg Narrative: Clear lungs bilaterally, unlabored breathing Heart sounds regular rate and rhythm, no murmurs Abdomen soft No lower extremity edema Awake and alert, hard of hearing Results - Labs CBC & Chem 7: 04/10/18 05:10 04/10/18 05:10 Laboratory Results - last 24 hr 04/09/18 04/09/18 04/09/18 15:10 15:16 15:16 WBC 19.1 H RBC 4.13 L Hgb 13.6 Hct 38.6 L MCV 93.5 MCH 32.9 MCHC 35.2 RDW 14.2 Plt Count 214 MPV 7.2 Neut % (Auto) 88.2 H Lymph % (Auto) 4.9 L Early % (Auto) 6.5 Eos % (Auto) 0.0 Baso % (Auto) 0.4 Neut # (Auto) 16.9 H Lymph # (Auto) 0.9 L Early # (Auto) 1.3 H Eos # (Auto) 0.0 Baso # (Auto) 0.1 WBC Differential . Differential Comment Auto diff final Sodium 134 L Potassium 4.4 Chloride 100 Carbon Dioxide 25.0 Anion Gap 9 BUN 29 H Creatinine 1.44 H Estimated GFR 46 L POC Glucose Random Glucose 128 H Lactic Acid Calcium 8.5 Total Bilirubin 1.5 H AST 35 ALT 29 Alkaline Phosphatase 72 Troponin I Less than 0.02 L Total Protein 7.9 Albumin 3.5 Urine Color Yellow Urine Clarity Cloudy H Urine pH 5.0 Ur Specific Rough [place] Ready 1.024 Urine Protein 100 H Urine Glucose (UA) Negative Urine Ketones Trace H Urine Occult Blood Large H Urine Nitrate Positive H Urine Bilirubin Negative Urine Urobilinogen 4 or greater Ur Leukocyte Esterase Large H Urine RBC 8 H Urine WBC Urine WBC Clumps Moderate H Ur Squamous Epith Cells 4 Urine Bacteria Many H Urine Mucus Few H Micro UA Comment Culture indicated Ur Microscopic Review Not Reportable Urine Culture Comments Culture indicated 04/09/18 04/09/18 04/09/18 15:16 17:14 20:19 WBC RBC Hgb Hct MCV MCH MCHC RDW Plt Count MPV Neut % (Auto) Lymph % (Auto) Early % (Auto) Eos % (Auto) Baso % (Auto) Neut # (Auto) Lymph # (Auto) Early # (Auto) Eos # (Auto) Baso # (Auto) WBC Differential Differential Comment Sodium Potassium Chloride Carbon Dioxide Anion Gap BUN Creatinine Estimated GFR POC Glucose 128 H 117 H Random Glucose Lactic Acid 1.6 Calcium Total Bilirubin AST ALT Alkaline Phosphatase Troponin I Total Protein Albumin Urine Color Urine Clarity Urine pH Ur Specific [place] Urine Protein Urine Glucose (UA) Urine Ketones Urine Occult Blood Urine Nitrate Urine Bilirubin Urine Urobilinogen Ur Leukocyte Esterase Urine RBC Urine WBC Urine WBC Clumps Ur Squamous Epith Cells Urine Bacteria Urine Mucus Micro UA Comment Ur Microscopic Review Urine Culture Comments 04/10/18 04/10/18 04/10/18 05:10 05:10 07:31 WBC 16.0 H RBC 3.89 L Hgb 12.2 L Hct 36.1 L MCV 92.9 MCH 31.5 MCHC 33.9 RDW 14.5 Plt Count 177 MPV 7.4 Neut % (Auto) 89.9 H Lymph % (Auto) 4.2 L Early % (Auto) 5.7 Eos % (Auto) 0.0 Baso % (Auto) 0.2 Neut # (Auto) 14.4 H Lymph # (Auto) 0.7 L Early # (Auto) 0.9 Eos # (Auto) 0.0 Baso # (Auto) 0.0 WBC Differential . Differential Comment Auto diff final Sodium 138 Potassium 3.6 D Chloride 105 Carbon Dioxide 22.6 Anion Gap 10 BUN 25 H Creatinine 1.09 Estimated GFR 64 L POC Glucose 99 Random Glucose 103 Lactic Acid Calcium 8.0 L Total Bilirubin AST ALT Alkaline Phosphatase Troponin I Total Protein Albumin Urine Color Urine Clarity Urine pH Ur Specific Rough And Ready Urine Protein Urine Glucose (UA) Urine Ketones Urine Occult Blood Urine Nitrate Urine Bilirubin Urine Urobilinogen Ur Leukocyte Esterase Urine RBC Urine WBC Urine WBC Clumps Ur Squamous Epith Cells Urine Bacteria Urine Mucus Micro UA Comment Ur Microscopic Review Urine Culture Comments Microbiology 04/09/18 15:16 Blood - Peripheral Aerobic Blood Culture - Preliminary No growth in 1 day 04/09/18 15:16 Blood - Peripheral Anaerobic Blood Culture - Preliminary No growth in 1 day 04/09/18 15:16 Blood - Peripheral Aerobic Blood Culture - Preliminary No growth in 1 day 04/09/18 15:16 Blood - Peripheral Anaerobic Blood Culture - Preliminary No growth in 1 day 04/09/18 15:20 Nasal Wash Influenza Types A,B Antigen - Final Negative for FLU A and B antigen Infection due to influenza A or B cannot be ruled out since the antigen present in the sample may be below the detection limit of the test. - Imaging Impressions Chest X-Ray 04/09/18 14:48 CONCLUSION: Mild basilar density, probably atelectasis. Head CT 04/09/18 14:48 CONCLUSION: 1. No acute intracranial abnormalities. . Assessment and Plan - Plan Mr. Coreas is a pleasant 87-year-old male with a history of hypertension, diabetes mellitus, BPH who presents to the emergency department due to altered mental status noted by his . Patient is currently alert oriented x3. He reports congestion with phlegm production for about a week. He denies any fever at home. However, upon admission he was found to have fever 101.1 F. He also met criteria for sepsis due to leukocytosis, respiration 22. Sepsis (WBC 19.1K, respiration 22, suspected infection bronchitis versus pneumonia) -Secondary pneumonia, improving, continue IV fluids and antibiotics as below -Follow-up blood cultures and urine culture Suspected pneumonia Continue Rocephin and azithromycin, order pro-calcitonin if negative can consider discontinue antibiotics if all other workup is negative Bacteriuria and pyuria -Follow-up urine culture, continue antibiotics Diabetes mellitus Sliding scale while inpatient Hypertension Patient is currently normotensive. Mild acute kidney injury Improving with IV fluids Full code. Lovenox 30 mg subcutaneous daily for DVT prophylaxis.
[2018-04-10] MEDS: Enoxaparin Inj 30 MG/0.3 ML Syringe SQ SCH (17:21)
[2018-04-10] MEDS: Azithromycin 250 MG Tablet PO SCH (17:25)
[2018-04-11 06:05] LABS: Baso % (Auto) 0.3 % (0.0-2.0); Eos # (Auto) 0.3 th/mm3 (0.0-0.4); Eos % (Auto) 2.1 % (0.0-4.0); Hematocrit 34.1 % (39.0-51.0); Hemoglobin 11.6 gm/dL (13.0-17.0); Lymph % (Auto) 8.1 % (9.0-44.0); Mean Corpuscular HGB Conc 33.9 % (32.0-36.0); Mean Corpuscular Hemoglobin 31.1 pg (27.0-34.0); Mean Corpuscular Volume 91.6 fL (80.0-100.0); Mean Platelet Volume 7.9 fL (7.0-11.0); Mono # (Auto) 1.1 th/mm3 (0.0-0.9); Mono % (Auto) 9.5 % (0.0-8.0); Neut # (Auto) 9.6 th/mm3 (1.8-7.7); Platelet Count 198 th/mm3 (150-450); Red Blood Count 3.73 mil/mm3 (4.50-5.90); Red Cell Distribution Width 14.7 % (11.6-17.2)
[2018-04-11 08:37] VITALS: RESP 18; TEMP 97.8
[2018-04-11] MEDS: Insulin NovoLOG Aspart Correctional Sugar Inj SQ SCH ×2 (08:48→12:38)
[2018-04-11] MEDS: Sod Chloride 0.9% Inj 1,000 ML IV.CONT SCH (08:49)
[2018-04-11 13:21] VITALS: BP 147/67; PULSE 75; O2SAT 98
--- NOTE | 2018-04-11 16:34 | P.PNIM ---
Subjective Interval history: Patient denies any acute changes overnight. Patient self wanting to go home. Denies any abdominal pain. Denies noticing any rash, denies any itching. Physical Exam Vital signs: Vital Signs 04/10/18 20:00 04/10/18 20:27 04/10/18 23:52 Temperature 98.7 F 98.6 F Pulse Rate 89 84 Respiratory Rate 16 17 Blood Pressure 111/68 111/59 L Pulse Oximetry 95 95 95 04/11/18 00:00 04/11/18 04:00 04/11/18 08:00 Temperature 97.8 F Pulse Rate 86 71 73 Respiratory Rate 18 Blood Pressure 134/63 Pulse Oximetry 97 04/11/18 08:40 04/11/18 09:38 04/11/18 12:00 Temperature 97.8 F Pulse Rate 73 75 Respiratory Rate 18 Blood Pressure 147/67 H Pulse Oximetry 95 98 Intake & Output 04/10/18 04/11/18 04/11/18 18:59 06:59 18:59 Intake Total 100 / 100 1000 / 1000 1000 / 1000 Output Total 850 / 850 500 / 500 Balance -750 / -750 500 / 500 1000 / 1000 Weight 77.2 kg Intake: IV 100 / 100 1000 / 1000 1000 / 1000 NS Inj 1,000 ML @ 75 mls/hr IV. 1000 / 1000 1000 / 1000 CONT .[id number] RIKA Rx#:[id number] Rocephin Inj 2,000 MG In NS Inj 100 / 100 100 ML @ 200 mls/hr IV.SIG Q24H RIKA Rx#:[id number] Oral 0 / 0 Output: Urine 850 / 850 500 / 500 Other: # Bowel Movements 1 0 Narrative: Clear lungs bilaterally, labored breathing Heart sounds regular rate and rhythm, no murmurs No abdominal tenderness to palpation Awake and alert Cooperative, no acute distress Noted to have a blanching diffuse macular rash over his back, no rash on the torso Results - Labs CBC & Chem 7: 04/11/18 04:24 04/10/18 05:10 Laboratory Results - last 24 hr 04/10/18 04/10/18 04/11/18 17:25 20:52 04:24 WBC 12.0 H RBC 3.73 L Hgb 11.6 L Hct 34.1 L MCV 91.6 MCH 31.1 MCHC 33.9 RDW 14.7 Plt Count 198 MPV 7.9 Neut % (Auto) 80.0 H Lymph % (Auto) 8.1 L [place] % (Auto) 9.5 H Eos % (Auto) 2.1 Baso % (Auto) 0.3 Neut # (Auto) 9.6 H Lymph # (Auto) 1.0 [place] # (Auto) 1.1 H Eos # (Auto) 0.3 Baso # (Auto) 0.0 WBC Differential . Differential Comment Auto diff final POC Glucose 102 130 H 04/11/18 07:25 WBC RBC Hgb Hct MCV MCH MCHC RDW Plt Count MPV Neut % (Auto) Lymph % (Auto) [place] % (Auto) Eos % (Auto) Baso % (Auto) Neut # (Auto) Lymph # (Auto) [place] # (Auto) Eos # (Auto) Baso # (Auto) WBC Differential Differential Comment POC Glucose 109 Microbiology 04/09/18 15:16 Blood - Peripheral Aerobic Blood Culture - Preliminary No growth in 2 days 04/09/18 15:16 Blood - Peripheral Anaerobic Blood Culture - Preliminary No growth in 2 days 04/09/18 15:16 Blood - Peripheral Aerobic Blood Culture - Preliminary No growth in 2 days 04/09/18 15:16 Blood - Peripheral Anaerobic Blood Culture - Preliminary No growth in 2 days 04/09/18 15:10 Clean Catch Urine Urine Culture - Final Escherichia coli Assessment and Plan - Plan Mr. Coreas is a pleasant 87-year-old male with a history of hypertension, diabetes mellitus, BPH who presents to the emergency department due to altered mental status noted by his . Patient is currently alert oriented x3. He reports congestion with phlegm production for about a week. He denies any fever at home. However, upon admission he was found to have fever 101.1 F. He also met criteria for sepsis due to leukocytosis, respiration 22. His acute kidney injury had improved with IV fluids and his fevers resolved. Tolerating p.o. intake well. Was noted to develop a worsening rash with cephalexin which likely has been the cross reactive issues with his penicillin allergy. Patient will be discharged with azithromycin and ciprofloxacin. She has been maximal benefit from hospitalization is clinically stable for discharge. Sepsis (WBC 19.1K, respiration 22, suspected infection bronchitis versus pneumonia) -Secondary pneumonia, improving, continue IV fluids and antibiotics as below -Blood cultures negative, urine culture growing pansensitive E. coli Possible pneumonia Per my independent review of the chest x-ray I see no infiltrates, likely his original fever was due to UTI
== END 2018-04-11 13:15 | disposition home or self-care (01) | DRG 871 ==
LOC: NEPC 14:30 → NEDA 14:30 → OBSVTOIN 16:24 → NEDA 17:49 → N04 17:56
PROVIDERS: ADMIT Hospitalist; ATTEND Hospitalist
DX: N17.9 Acute kidney failure, unspecified; R21 Rash and other nonspecific skin eruption; Z96.649 Presence of unspecified artificial hip joint; N40.0 Benign prostatic hyperplasia without lower urinary tract symptoms; H91.90 Unspecified hearing loss, unspecified ear; J18.9 Pneumonia, unspecified organism; A41.9 Sepsis, unspecified organism; E78.5 Hyperlipidemia, unspecified; Z79.84 Long term (current) use of oral hypoglycemic drugs; F03.90 Unspecified dementia, unspecified severity, without behavioral disturbance, psychotic disturbance, mood disturbance, and anxiety; Z79.899 Other long term (current) drug therapy; N39.0 Urinary tract infection, site not specified; Z88.0 Allergy status to penicillin; B96.20 Unspecified Escherichia coli [E. coli] as the cause of diseases classified elsewhere; E11.9 Type 2 diabetes mellitus without complications; Z87.891 Personal history of nicotine dependence; I10 Essential (primary) hypertension
CPT/HCPCS: 70450; 71010; 71045; 80048; 80053; 81001; 82948; 82962; 83605; 84484; 85025; 87040; 87077; 87086; 87186; 87275; 87276; 87804; 92610; 97163; 99285; G0195; G8987; G8988; J0696; J1650; J7030